=== PATIENT | female | born 1930 | race Caucasian/White ===

== ENCOUNTER 2017-10-03 08:23 | Emergency (ER) | payer MEDICARE, OTHER ==
[~2017-10-03] VITALS: Ht 162.6 cm; Wt 82.0 kg
[~2017-10-03 08:23] MED LIST: METH500T PO
[2017-10-03 09:06] LABS: BASOPHILS % (AUTO) 0.4 % (0-1); EOSINOPHILS # (AUTO) 0.1 X10'3 (0-0.9); EOSINOPHILS % (AUTO) 2.1 % (0-6); HEMATOCRIT 43.7 % (35.0-45.0); HEMOGLOBIN 14.9 g/dl (12.0-16.0); LYMPHOCYTES # (AUTO) 1.1 X10'3 (1.1-4.8); LYMPHOCYTES % (AUTO) 19.3 % (21-51); MEAN CORPUSCULAR HEMOGLOBIN 30.6 PG (27.0-31.0); MEAN PLATELET VOLUME 7.6 FL (7.4-10.4); MONOCYTES # (AUTO) 0.4 X10'3 (0-0.9); MONOCYTES % (AUTO) 8.1 % (2-12); NEUTROPHILS # (AUTO) 3.9 X10'3 (1.8-7.7); NEUTROPHILS % (AUTO) 70.1 % (42-75); PLATELET COUNT 253 X10'3 (140-440); RED BLOOD COUNT 4.86 X10'6 (4.20-5.60); RED CELL DISTRIBUTION WIDTH 13.4 % (11.5-14.5); WHITE BLOOD COUNT 5.5 X10'3 (4.5-11.0)
[2017-10-03 09:14] LABS: ALANINE AMINOTRANSFERASE 31 U/L (12-78); ALBUMIN 3.7 G/DL (3.4-5.0); ALBUMIN/GLOBULIN RATIO 0.8 (1.1-1.5); ALKALINE PHOSPHATASE 84 IU/L (46-116); ANION GAP 11 (8-16); ASPARTATE AMINO TRANSFERASE 28 U/L (10-37); BILIRUBIN,TOTAL 0.6 MG/DL (0.1-1.0); BLOOD UREA NITROGEN 22 MG/DL (7-18); BUN/CREATININE RATIO 12.8 (6.6-38.0); CALCIUM 9.6 MG/DL (8.5-10.1); CHLORIDE 102 MMOL/L (99-107); CREATININE 1.72 MG/DL (0.40-0.90); GLUCOSE 108 MG/DL (70-104); POTASSIUM 3.9 MMOL/L (3.5-5.1); SODIUM 139 MMOL/L (135-145); TOTAL CARBON DIOXIDE 26.4 MMOL/L (24-32); TOTAL PROTEIN 8.1 G/DL (6.4-8.2); eGFR 28 ML/MIN
[2017-10-03 09:22] LABS: CLARITY,URINE CLEAR (Clear); COLOR,URINE YELLOW (Yellow); GLUCOSE, URINE NEGATIVE (Neg); KETONES,URINE NEGATIVE (Neg); LEUKOCYTE ESTERASE ,URINE NEGATIVE (Neg); NITRITES, URINE NEGATIVE (Neg); OCCULT BLOOD,URINE NEGATIVE (Neg); PROTEIN,URINE TRACE mg/dl (Neg)
[2017-10-03 09:23] LABS: UA COLLECTION TYPE STRAIGHT CATH
[2017-10-03 09:28] LABS: MUCUS STRANDS MANY /LPF (Neg); SQUAMOUS EPITHELIAL CELL,UR MODERATE /LPF (FEW)
[2017-10-03 09:30] LABS: BACTERIA,URINE FEW /HPF (Neg); RBC,URINE 0-2 /HPF (0-2); TRANSITIONAL EPI CELLS,URINE FEW /HPF; WBC,URINE 0-4 /HPF (0-4)
[2017-10-03] MEDS ORDERED: POLY17PO10 PO (11:32)
[2017-10-03 11:41] VITALS: BP 182/66
== END 2017-10-03 12:25 | disposition home or self-care (01) ==
LOC: ER 08:23
DX: R10.31 Right lower quadrant pain (principal); K59.00 Constipation, unspecified; I48.91 Unspecified atrial fibrillation; K82.8 Other specified diseases of gallbladder; Z88.0 Allergy status to penicillin
CPT/HCPCS: 36415; 74176; 80053; 81001; 85025; 99285

== ENCOUNTER 2018-03-06 11:27 | Inpatient (IN) | payer MEDICARE, OTHER ==
[~2018-03-06] VITALS: Ht 162.6 cm; Wt 78.6 kg
[2018-03-06] MEDS ORDERED: normal saline 1000ML IV soln IVB ONE ×3 (11:50→12:45)
[2018-03-06 12:02] LABS: BASOPHILS % (AUTO) 0.5 % (0-1); EOSINOPHILS # (AUTO) 0.1 X10'3 (0-0.9); EOSINOPHILS % (AUTO) 1.8 % (0-6); HEMATOCRIT 39.8 % (35.0-45.0); HEMOGLOBIN 13.6 g/dl (12.0-16.0); LYMPHOCYTES # (AUTO) 0.9 X10'3 (1.1-4.8); LYMPHOCYTES % (AUTO) 15.1 % (21-51); MEAN CORPUSCULAR HEMOGLOBIN 30.7 PG (27.0-31.0); MEAN CORPUSCULAR HGB CONC 34.1 % (33.0-36.5); MEAN CORPUSCULAR VOLUME 90.1 FL (78-98); MEAN PLATELET VOLUME 7.3 FL (7.4-10.4); MONOCYTES # (AUTO) 0.4 X10'3 (0-0.9); MONOCYTES % (AUTO) 6.3 % (2-12); NEUTROPHILS # (AUTO) 4.4 X10'3 (1.8-7.7); NEUTROPHILS % (AUTO) 76.3 % (42-75); PLATELET COUNT 214 X10'3 (140-440); RED BLOOD COUNT 4.42 X10'6 (4.20-5.60); RED CELL DISTRIBUTION WIDTH 14.8 % (11.5-14.5); WHITE BLOOD COUNT 5.8 X10'3 (4.5-11.0)
[2018-03-06 12:19] LABS: ALANINE AMINOTRANSFERASE 23 U/L (12-78); ALBUMIN 3.5 G/DL (3.4-5.0); ALBUMIN/GLOBULIN RATIO 0.9 (1.1-1.5); ALKALINE PHOSPHATASE 109 IU/L (46-116); ANION GAP 11 (8-16); ASPARTATE AMINO TRANSFERASE 15 U/L (10-37); BILIRUBIN,TOTAL 0.4 MG/DL (0.1-1.0); BLOOD UREA NITROGEN 30 MG/DL (7-18); BUN/CREATININE RATIO 15.7 (6.6-38.0); CALCIUM 8.9 MG/DL (8.5-10.1); CHLORIDE 104 MMOL/L (99-107); CREATININE 1.91 MG/DL (0.40-0.90); GLUCOSE 191 MG/DL (70-104); POTASSIUM 3.4 MMOL/L (3.5-5.1); PROTHROMBIN TIME 10.2 SECONDS (9.0-12.0); SODIUM 137 MMOL/L (135-145); TOTAL CARBON DIOXIDE 21.9 MMOL/L (24-32); TOTAL PROTEIN 7.3 G/DL (6.4-8.2); eGFR 25 ML/MIN
[2018-03-06 12:23] LABS: TROPONIN I < 0.04 NG/ML (0.0-0.05)
[2018-03-06] MEDS ORDERED: aspirin 325mg tablet PO ONE (12:35)
[2018-03-06] MEDS ORDERED: ondansetron/PF 4mg/2ml inj IV ONE (12:40)
[2018-03-06] MEDS ORDERED: furosemide 10 MG/1 ML 10ml inj IV ONE (13:00)
[2018-03-06] MEDS ORDERED: CARSR60C PO (13:34)
[2018-03-06] MEDS ORDERED: iohexol 350MG/ML 100ml bottle IV ONE (13:51)
[2018-03-06 14:02] LABS: CLARITY,URINE SLIGHTLY CLOUDY (Clear); COLOR,URINE YELLOW (Yellow); GLUCOSE, URINE NEGATIVE (Neg); KETONES,URINE TRACE mg/dl (Neg); LEUKOCYTE ESTERASE ,URINE NEGATIVE (Neg); NITRITES, URINE NEGATIVE (Neg); OCCULT BLOOD,URINE NEGATIVE (Neg); PROTEIN,URINE 30 mg/dl (Neg)
[2018-03-06 14:08] LABS: UA COLLECTION TYPE FOLEY CATH
[2018-03-06] MEDS ORDERED: normal saline 1000ml 1,000 ML IV SCH (14:12)
[2018-03-06] MEDS ORDERED: magnesium 4gm in 100ml NS 100 ML IV PRN (14:15)
[2018-03-06] MEDS ORDERED: magnesium 1gm/100ml D5W IVPB 100 ML IV PRN (14:15)
[2018-03-06] MEDS ORDERED: magnesium Cl slow-release 64mg tablet PO PRN (14:15)
[2018-03-06] MEDS ORDERED: potassium Cl 40MEQ/NS 500ml 500 ML IV PRN ×2 (14:15)
[2018-03-06] MEDS ORDERED: potassium Cl 20 mEq SR tablet PO PRN ×2 (14:15)
[2018-03-06 15:42] LABS: BACTERIA,URINE NONE SEEN /HPF (Neg); RBC,URINE 0-2 /HPF (0-2); SQUAMOUS EPITHELIAL CELL,UR MODERATE /LPF (FEW); WBC,URINE 0-4 /HPF (0-4)
[2018-03-06 15:43] LABS: CAL OXALATE CRYSTALS 4+ /HPF (NEGATIVE); MUCUS STRANDS FEW /LPF (Neg)
[2018-03-06 18:00] VITALS: BP_SYST 160; BP_SYST 169; BP_DIAS 56; BP_DIAS 65
[2018-03-06 20:00] VITALS: BP_SYST 139; BP_SYST 163; BP_SYST 164; BP_DIAS 59; BP_DIAS 60; BP_DIAS 65
[2018-03-06 23:00] VITALS: BP_SYST 139; BP_SYST 163; BP_SYST 164; BP_DIAS 59; BP_DIAS 60; BP_DIAS 65
[2018-03-07] VITALS (8 sets, daily range): BP systolic 120–187; BP diastolic 48–72
[2018-03-07 06:58] LABS: BASOPHILS % (AUTO) 0.3 % (0-1); EOSINOPHILS # (AUTO) 0.1 X10'3 (0-0.9); EOSINOPHILS % (AUTO) 1.8 % (0-6); HEMATOCRIT 38.9 % (35.0-45.0); HEMOGLOBIN 13.4 g/dl (12.0-16.0); LYMPHOCYTES % (AUTO) 15.6 % (21-51); MEAN CORPUSCULAR HGB CONC 34.3 % (33.0-36.5); MEAN CORPUSCULAR VOLUME 90.4 FL (78-98); MEAN PLATELET VOLUME 7.6 FL (7.4-10.4); MONOCYTES # (AUTO) 0.5 X10'3 (0-0.9); MONOCYTES % (AUTO) 7.3 % (2-12); NEUTROPHILS # (AUTO) 4.9 X10'3 (1.8-7.7); PLATELET COUNT 220 X10'3 (140-440); RED BLOOD COUNT 4.31 X10'6 (4.20-5.60); RED CELL DISTRIBUTION WIDTH 14.6 % (11.5-14.5); WHITE BLOOD COUNT 6.6 X10'3 (4.5-11.0)
[2018-03-07 07:06] LABS: ALBUMIN 3.1 G/DL (3.4-5.0); ANION GAP 9 (8-16); BLOOD UREA NITROGEN 20 MG/DL (7-18); BUN/CREATININE RATIO 12.5 (6.6-38.0); CALCIUM 8.7 MG/DL (8.5-10.1); CHLORIDE 107 MMOL/L (99-107); GLUCOSE 89 MG/DL (70-104); POTASSIUM 4.1 MMOL/L (3.5-5.1); SODIUM 141 MMOL/L (135-145); TOTAL CARBON DIOXIDE 25.5 MMOL/L (24-32); eGFR 30 ML/MIN
[2018-03-07] MEDS: K and/or MAG REPLACEMENT MC SCH (08:00)
[2018-03-07] MEDS ORDERED: lactose-reduced food (Ensure High Protein) 237ml bottle PO SCH (13:00)
[2018-03-07] MEDS ORDERED: AMIO200T40 PO (13:04)
[2018-03-07] MEDS ORDERED: DILT120C62 PO (13:04)
[2018-03-07] MEDS ORDERED: LEVO50TA PO (13:04)
[2018-03-07] MEDS ORDERED: hyDRALAzine 10mg tablet PO ONE (19:35)
[2018-03-07] MEDS ORDERED: acetaminophen 325mg tablet PO PRN (21:50)
[2018-03-07] MEDS ORDERED: bisacodyl 5mg tablet.DR PO PRN (21:50)
[2018-03-07] MEDS ORDERED: magnesium hydroxide 30ml (MOM) UD suspension PO ONE (21:50)
[2018-03-07] MEDS ORDERED: bisacodyl 10mg suppository rectal RC PRN (21:50)
[2018-03-07] MEDS ORDERED: magnesium hydroxide 30ml (MOM) UD suspension PO PRN (21:55)
[2018-03-07] MEDS: hyDRALAzine 10mg tablet PO SCH (23:36)
[2018-03-08] VITALS (9 sets, daily range): BP systolic 134–197; BP diastolic 56–90
[2018-03-08 02:52] LABS: BASOPHILS % (AUTO) 0.7 % (0-1); EOSINOPHILS # (AUTO) 0.1 X10'3 (0-0.9); EOSINOPHILS % (AUTO) 2.1 % (0-6); HEMOGLOBIN 12.5 g/dl (12.0-16.0); LYMPHOCYTES # (AUTO) 1.5 X10'3 (1.1-4.8); LYMPHOCYTES % (AUTO) 24.9 % (21-51); MEAN CORPUSCULAR HEMOGLOBIN 30.7 PG (27.0-31.0); MEAN CORPUSCULAR HGB CONC 33.8 % (33.0-36.5); MEAN CORPUSCULAR VOLUME 90.8 FL (78-98); MEAN PLATELET VOLUME 7.9 FL (7.4-10.4); MONOCYTES # (AUTO) 0.4 X10'3 (0-0.9); MONOCYTES % (AUTO) 6.8 % (2-12); NEUTROPHILS % (AUTO) 65.5 % (42-75); PLATELET COUNT 214 X10'3 (140-440); RED BLOOD COUNT 4.08 X10'6 (4.20-5.60); RED CELL DISTRIBUTION WIDTH 14.6 % (11.5-14.5); WHITE BLOOD COUNT 6.2 X10'3 (4.5-11.0)
[2018-03-08 03:07] LABS: ALBUMIN 2.9 G/DL (3.4-5.0); ANION GAP 9 (8-16); BLOOD UREA NITROGEN 18 MG/DL (7-18); BUN/CREATININE RATIO 11.5 (6.6-38.0); CALCIUM 9.1 MG/DL (8.5-10.1); CHLORIDE 107 MMOL/L (99-107); CREATININE 1.57 MG/DL (0.40-0.90); GLUCOSE 99 MG/DL (70-104); MAGNESIUM 2.2 MG/DL (1.5-2.4); POTASSIUM 4.3 MMOL/L (3.5-5.1); SODIUM 141 MMOL/L (135-145); TOTAL CARBON DIOXIDE 25.5 MMOL/L (24-32); eGFR 31 ML/MIN
[2018-03-08] MEDS: amiodarone 200mg tablet PO SCH (07:53)
[2018-03-08] MEDS: levoTHYROXINE 25mcg tablet PO SCH (07:54)
[2018-03-08] MEDS: hyDRALAzine 10mg tablet PO SCH ×3 (07:54→23:47)
[2018-03-08] MEDS: K and/or MAG REPLACEMENT MC SCH (07:58)
[2018-03-08] MEDS: dextrose 5%-1/2 normal saline 1,000 ML IV SCH (15:27)
[2018-03-08] MEDS ORDERED: hyDRALAzine 10mg tablet PO PRN (18:30)
[2018-03-08] MEDS: hyDRALAzine 10mg tablet PO PRN (19:08)
[2018-03-08] MEDS ORDERED: hydrALAZINE 20mg/ml inj. IV ONE (21:00)
[2018-03-09] VITALS (7 sets, daily range): BP systolic 136–197; BP diastolic 53–90
[2018-03-09] MEDS: dextrose 5%-1/2 normal saline 1,000 ML IV SCH ×3 (01:44→21:37)
[2018-03-09] MEDS: hyDRALAzine 10mg tablet PO PRN (05:20)
[2018-03-09 06:09] LABS: BASOPHILS % (AUTO) 0.6 % (0-1); EOSINOPHILS # (AUTO) 0.1 X10'3 (0-0.9); EOSINOPHILS % (AUTO) 2.6 % (0-6); HEMATOCRIT 35.2 % (35.0-45.0); HEMOGLOBIN 12.2 g/dl (12.0-16.0); LYMPHOCYTES % (AUTO) 19.8 % (21-51); MEAN CORPUSCULAR HEMOGLOBIN 31.1 PG (27.0-31.0); MEAN CORPUSCULAR HGB CONC 34.5 % (33.0-36.5); MEAN PLATELET VOLUME 7.9 FL (7.4-10.4); MONOCYTES # (AUTO) 0.4 X10'3 (0-0.9); MONOCYTES % (AUTO) 6.9 % (2-12); NEUTROPHILS # (AUTO) 3.6 X10'3 (1.8-7.7); NEUTROPHILS % (AUTO) 70.1 % (42-75); PLATELET COUNT 192 X10'3 (140-440); RED BLOOD COUNT 3.91 X10'6 (4.20-5.60); RED CELL DISTRIBUTION WIDTH 14.3 % (11.5-14.5); WHITE BLOOD COUNT 5.1 X10'3 (4.5-11.0)
[2018-03-09 06:12] LABS: ALBUMIN 2.6 G/DL (3.4-5.0); ANION GAP 4 (8-16); BLOOD UREA NITROGEN 20 MG/DL (7-18); CALCIUM 8.4 MG/DL (8.5-10.1); CHLORIDE 104 MMOL/L (99-107); CREATININE 1.43 MG/DL (0.40-0.90); GLUCOSE 101 MG/DL (70-104); MAGNESIUM 2.5 MG/DL (1.5-2.4); POTASSIUM 3.7 MMOL/L (3.5-5.1); SODIUM 139 MMOL/L (135-145); eGFR 35 ML/MIN
[2018-03-09] MEDS: levoTHYROXINE 25mcg tablet PO SCH (07:36)
[2018-03-09] MEDS: K and/or MAG REPLACEMENT MC SCH (07:38)
[2018-03-09] MEDS: hyDRALAzine 10mg tablet PO SCH ×3 (07:49→23:50)
[2018-03-09] MEDS: amiodarone 200mg tablet PO SCH (09:46)
[2018-03-09] MEDS: heparin, porcine 5000 units/ml vial SQ SCH (20:00)
[2018-03-10] VITALS (7 sets, daily range): BP systolic 154–226; BP diastolic 62–90
[2018-03-10] MEDS: hyDRALAzine 10mg tablet PO PRN (05:23)
[2018-03-10] MEDS: K and/or MAG REPLACEMENT MC SCH (07:27)
[2018-03-10] MEDS: hyDRALAzine 10mg tablet PO SCH (07:36)
[2018-03-10] MEDS: amiodarone 200mg tablet PO SCH (07:36)
[2018-03-10] MEDS: levoTHYROXINE 25mcg tablet PO SCH (07:37)
[2018-03-10] MEDS: heparin, porcine 5000 units/ml vial SQ SCH ×2 (07:40→20:00)
[2018-03-10] MEDS: dextrose 5%-1/2 normal saline 1,000 ML IV SCH ×2 (07:40→17:05)
[2018-03-10 09:10] LABS: BASOPHILS % (AUTO) 0.4 % (0-1); EOSINOPHILS # (AUTO) 0.2 X10'3 (0-0.9); EOSINOPHILS % (AUTO) 2.4 % (0-6); HEMATOCRIT 37.2 % (35.0-45.0); HEMOGLOBIN 12.7 g/dl (12.0-16.0); LYMPHOCYTES # (AUTO) 0.9 X10'3 (1.1-4.8); LYMPHOCYTES % (AUTO) 13.6 % (21-51); MEAN CORPUSCULAR VOLUME 91.2 FL (78-98); MEAN PLATELET VOLUME 7.5 FL (7.4-10.4); MONOCYTES # (AUTO) 0.4 X10'3 (0-0.9); MONOCYTES % (AUTO) 6.5 % (2-12); NEUTROPHILS % (AUTO) 77.1 % (42-75); PLATELET COUNT 208 X10'3 (140-440); RED BLOOD COUNT 4.09 X10'6 (4.20-5.60); RED CELL DISTRIBUTION WIDTH 14.4 % (11.5-14.5); WHITE BLOOD COUNT 6.5 X10'3 (4.5-11.0)
[2018-03-10 09:26] LABS: ALBUMIN 2.8 G/DL (3.4-5.0); ANION GAP 6 (8-16); BLOOD UREA NITROGEN 20 MG/DL (7-18); BUN/CREATININE RATIO 15.7 (6.6-38.0); CALCIUM 8.2 MG/DL (8.5-10.1); CHLORIDE 98 MMOL/L (99-107); CREATININE 1.27 MG/DL (0.40-0.90); GLUCOSE 136 MG/DL (70-104); MAGNESIUM 2.1 MG/DL (1.5-2.4); POTASSIUM 3.6 MMOL/L (3.5-5.1); SODIUM 130 MMOL/L (135-145); TOTAL CARBON DIOXIDE 25.9 MMOL/L (24-32); eGFR 40 ML/MIN
[2018-03-10] MEDS ORDERED: hydrALAZINE 25 MG tablet PO SCH (16:00)
[2018-03-10] MEDS: hydrALAZINE 25 MG tablet PO SCH ×2 (16:01→23:57)
[2018-03-11 00:02] VITALS: BP 141/69
[2018-03-11 05:59] LABS: BASOPHILS % (AUTO) 0.4 % (0-1); EOSINOPHILS # (AUTO) 0.1 X10'3 (0-0.9); EOSINOPHILS % (AUTO) 2.4 % (0-6); HEMATOCRIT 36.5 % (35.0-45.0); HEMOGLOBIN 12.6 g/dl (12.0-16.0); LYMPHOCYTES % (AUTO) 17.4 % (21-51); MEAN CORPUSCULAR HGB CONC 34.5 % (33.0-36.5); MEAN CORPUSCULAR VOLUME 89.9 FL (78-98); MEAN PLATELET VOLUME 7.7 FL (7.4-10.4); MONOCYTES # (AUTO) 0.5 X10'3 (0-0.9); MONOCYTES % (AUTO) 8.2 % (2-12); NEUTROPHILS # (AUTO) 4.1 X10'3 (1.8-7.7); NEUTROPHILS % (AUTO) 71.6 % (42-75); PLATELET COUNT 199 X10'3 (140-440); RED BLOOD COUNT 4.06 X10'6 (4.20-5.60); RED CELL DISTRIBUTION WIDTH 14.5 % (11.5-14.5); WHITE BLOOD COUNT 5.7 X10'3 (4.5-11.0)
[2018-03-11 06:14] LABS: ALBUMIN 2.8 G/DL (3.4-5.0); ANION GAP 4 (8-16); BLOOD UREA NITROGEN 18 MG/DL (7-18); CALCIUM 8.5 MG/DL (8.5-10.1); CHLORIDE 100 MMOL/L (99-107); GLUCOSE 96 MG/DL (70-104); MAGNESIUM 2.4 MG/DL (1.5-2.4); POTASSIUM 3.9 MMOL/L (3.5-5.1); SODIUM 133 MMOL/L (135-145); TOTAL CARBON DIOXIDE 29.5 MMOL/L (24-32); eGFR 42 ML/MIN
[2018-03-11 07:06] VITALS: BP 154/68
[2018-03-11] MEDS: K and/or MAG REPLACEMENT MC SCH (08:00)
[2018-03-11] MEDS: levoTHYROXINE 25mcg tablet PO SCH (08:02)
[2018-03-11] MEDS: hydrALAZINE 25 MG tablet PO SCH (08:03)
[2018-03-11] MEDS: amiodarone 200mg tablet PO SCH (08:03)
[2018-03-11] MEDS: heparin, porcine 5000 units/ml vial SQ SCH (08:06)
== END 2018-03-11 13:05 | DRG 683 ==
LOC: ER 11:27 → ED HOLD 14:12 → EDBEDREQ 15:29 → PCU 3S 17:35 → ORTHO 4S 23:04 → OBSVTOIN 03-07 10:00
PROVIDERS: ADMIT Internal Medicine; ATTEND Internal Medicine
DX: N17.9 Acute kidney failure, unspecified (principal); G45.9 Transient cerebral ischemic attack, unspecified; R55 Syncope and collapse; R00.1 Bradycardia, unspecified; N18.9 Chronic kidney disease, unspecified; E03.9 Hypothyroidism, unspecified; E78.5 Hyperlipidemia, unspecified; I12.9 Hypertensive chronic kidney disease with stage 1 through stage 4 chronic kidney disease, or unspecified chronic kidney disease; E86.0 Dehydration; E86.9 Volume depletion, unspecified; R29.810 Facial weakness; I48.0 Paroxysmal atrial fibrillation; N18.3 Chronic kidney disease, stage 3 (moderate); Z90.710 Acquired absence of both cervix and uterus; Z88.0 Allergy status to penicillin; Z91.048 Other nonmedicinal substance allergy status; Z79.899 Other long term (current) drug therapy
CPT/HCPCS: 36415; 70450; 70551; 71045; 72141; 80048; 80053; 81001; 82948; 83605; 83735; 83880; 84145; 84443; 84484; 85025; 85610; 87040; 87070; 93005; 93306; 93880; 97110; 97116; 97162; 97530; A6258; A6449; C1758; G0378; J0360; J1644; J1940; J2405; J7030; Q9967

== ENCOUNTER 2018-03-19 21:43 | Inpatient (IN) | payer MEDICARE, OTHER ==
[~2018-03-19] VITALS: Ht 162.6 cm; Wt 76.0 kg
[~2018-03-19 21:43] MED LIST changes: +AMIO200T40 PO; +CARSR60C PO; +DILT120C62 PO; +LEVO50TA PO; -METH500T PO
[2018-03-19] MEDS ORDERED: acetaminophen 325mg tablet PO ONE (22:45)
[2018-03-19 23:26] LABS: BASOPHILS % (AUTO) 0.4 % (0-1); EOSINOPHILS # (AUTO) 0.1 X10'3 (0-0.9); EOSINOPHILS % (AUTO) 1.6 % (0-6); HEMATOCRIT 37.9 % (35.0-45.0); LYMPHOCYTES # (AUTO) 0.5 X10'3 (1.1-4.8); LYMPHOCYTES % (AUTO) 6.5 % (21-51); MEAN CORPUSCULAR HEMOGLOBIN 30.8 PG (27.0-31.0); MEAN CORPUSCULAR HGB CONC 34.4 % (33.0-36.5); MEAN CORPUSCULAR VOLUME 89.4 FL (78-98); MONOCYTES # (AUTO) 0.6 X10'3 (0-0.9); MONOCYTES % (AUTO) 6.8 % (2-12); NEUTROPHILS % (AUTO) 84.7 % (42-75); PLATELET COUNT 250 X10'3 (140-440); RED BLOOD COUNT 4.24 X10'6 (4.20-5.60); RED CELL DISTRIBUTION WIDTH 14.9 % (11.5-14.5); WHITE BLOOD COUNT 8.3 X10'3 (4.5-11.0)
[2018-03-19 23:46] LABS: ALANINE AMINOTRANSFERASE 29 U/L (12-78); ALBUMIN 3.2 G/DL (3.4-5.0); ALBUMIN/GLOBULIN RATIO 0.9 (1.1-1.5); ALKALINE PHOSPHATASE 114 IU/L (46-116); ANION GAP 10 (8-16); ASPARTATE AMINO TRANSFERASE 20 U/L (10-37); BILIRUBIN,TOTAL 0.5 MG/DL (0.1-1.0); BLOOD UREA NITROGEN 29 MG/DL (7-18); CALCIUM 8.7 MG/DL (8.5-10.1); CHLORIDE 92 MMOL/L (99-107); CREATININE 1.93 MG/DL (0.40-0.90); GLUCOSE 120 MG/DL (70-104); POTASSIUM 4.2 MMOL/L (3.5-5.1); SODIUM 125 MMOL/L (135-145); TOTAL CARBON DIOXIDE 23.2 MMOL/L (24-32); TOTAL PROTEIN 6.9 G/DL (6.4-8.2); eGFR 25 ML/MIN
[2018-03-19] MEDS ORDERED: normal saline 1000ml 1,000 ML IV ONE (23:55)
[2018-03-20] MEDS ORDERED: ondansetron/PF 4mg/2ml inj IV ONE (00:05)
[2018-03-20] MEDS ORDERED: morphine 2 MG/ML inj. syringe IV ONE (00:05)
[2018-03-20 00:52] LABS: CLARITY,URINE SLIGHTLY CLOUDY (Clear); COLOR,URINE YELLOW (Yellow); GLUCOSE, URINE NEGATIVE (Neg); KETONES,URINE NEGATIVE (Neg); LEUKOCYTE ESTERASE ,URINE NEGATIVE (Neg); NITRITES, URINE NEGATIVE (Neg); OCCULT BLOOD,URINE NEGATIVE (Neg); PH,URINE 5.5 (4.8-8.0); PROTEIN,URINE NEGATIVE (Neg); UROBILINOGEN,URINE 0.2 E.U/dL (0.2-1.0)
[2018-03-20 00:58] LABS: UA COLLECTION TYPE NON-SPECIFIED
[2018-03-20 00:59] LABS: MUCUS STRANDS MANY /LPF (Neg)
[2018-03-20 01:00] LABS: SQUAMOUS EPITHELIAL CELL,UR MODERATE /LPF (FEW)
[2018-03-20 01:01] LABS: BACTERIA,URINE 1+ /HPF (Neg); HYALINE CASTS 0-3 /LPF (NEGATIVE); RBC,URINE 0-2 /HPF (0-2); WBC CLUMPS,URINE FEW /HPF (NEGATIVE)
[2018-03-20 01:02] LABS: YEAST MODERATE /HPF (NEGATIVE)
[2018-03-20 03:34] LABS: ALBUMIN 2.8 G/DL (3.4-5.0); ANION GAP 10 (8-16); BLOOD UREA NITROGEN 29 MG/DL (7-18); BUN/CREATININE RATIO 14.5 (6.6-38.0); CALCIUM 8.2 MG/DL (8.5-10.1); CHLORIDE 95 MMOL/L (99-107); GLUCOSE 108 MG/DL (70-104); POTASSIUM 4.2 MMOL/L (3.5-5.1); SODIUM 126 MMOL/L (135-145); TOTAL CARBON DIOXIDE 21.5 MMOL/L (24-32); eGFR 24 ML/MIN
[2018-03-20] MEDS ORDERED: morphine 2 MG/ML inj. syringe IV PRN ×3 (03:50→03:55)
[2018-03-20] MEDS ORDERED: acetaminophen 325mg tablet PO PRN ×4 (03:50→03:55)
[2018-03-20] MEDS ORDERED: ondansetron/PF 4mg/2ml inj IV PRN ×2 (03:50→03:55)
[2018-03-20] MEDS ORDERED: mag hydrox/Alum hydrox/simeth 30ml oral suspension PO PRN ×2 (03:50→03:55)
[2018-03-20] MEDS ORDERED: magnesium hydroxide 30ml (MOM) UD suspension PO PRN (03:55)
[2018-03-20] MEDS ORDERED: fluconazole 150mg tablet PO ONE (03:55)
[2018-03-20] MEDS: normal saline 1000ml 1,000 ML IV SCH ×2 (04:05→17:18)
[2018-03-20 05:00] VITALS: BP 97/50
[2018-03-20] MEDS: morphine 2 MG/ML inj. syringe IV PRN ×3 (07:14→21:33)
[2018-03-20 07:22] VITALS: BP 132/51
[2018-03-20 07:59] LABS: ALBUMIN 2.7 G/DL (3.4-5.0); ANION GAP 9 (8-16); BLOOD UREA NITROGEN 28 MG/DL (7-18); BUN/CREATININE RATIO 14.4 (6.6-38.0); CALCIUM 7.9 MG/DL (8.5-10.1); CHLORIDE 95 MMOL/L (99-107); CREATININE 1.94 MG/DL (0.40-0.90); GLUCOSE 96 MG/DL (70-104); POTASSIUM 4.2 MMOL/L (3.5-5.1); SODIUM 127 MMOL/L (135-145); TOTAL CARBON DIOXIDE 23.5 MMOL/L (24-32); eGFR 24 ML/MIN
[2018-03-20] MEDS ORDERED: docusate sod 100mg capsule PO SCH (08:00)
[2018-03-20] MEDS: docusate sod 100mg capsule PO SCH ×2 (08:00→20:00)
[2018-03-20] MEDS: diltiazem SR 60mg capsule (twice daily) PO SCH ×2 (08:00→20:15)
[2018-03-20] MEDS ORDERED: DILTIAZEM HCL PO SCH (08:00)
[2018-03-20] MEDS: amiodarone 200mg tablet PO SCH (08:20)
[2018-03-20] MEDS: levoTHYROXINE 25mcg tablet PO SCH (08:20)
[2018-03-20 12:52] LABS: ALBUMIN 2.7 G/DL (3.4-5.0); ANION GAP 9 (8-16); BLOOD UREA NITROGEN 27 MG/DL (7-18); BUN/CREATININE RATIO 14.3 (6.6-38.0); CALCIUM 8.3 MG/DL (8.5-10.1); CHLORIDE 95 MMOL/L (99-107); CREATININE 1.89 MG/DL (0.40-0.90); GLUCOSE 102 MG/DL (70-104); POTASSIUM 4.2 MMOL/L (3.5-5.1); SODIUM 127 MMOL/L (135-145); TOTAL CARBON DIOXIDE 22.6 MMOL/L (24-32); eGFR 25 ML/MIN
[2018-03-20 13:18] VITALS: BP 124/72
[2018-03-20] MEDS: nystatin 15 GM powder TP SCH ×2 (13:41→21:33)
[2018-03-20 16:36] LABS: ALBUMIN 2.6 G/DL (3.4-5.0); ANION GAP 6 (8-16); BLOOD UREA NITROGEN 27 MG/DL (7-18); BUN/CREATININE RATIO 14.4 (6.6-38.0); CALCIUM 8.1 MG/DL (8.5-10.1); CHLORIDE 97 MMOL/L (99-107); CREATININE 1.88 MG/DL (0.40-0.90); GLUCOSE 97 MG/DL (70-104); POTASSIUM 4.5 MMOL/L (3.5-5.1); SODIUM 127 MMOL/L (135-145); eGFR 25 ML/MIN
[2018-03-20 18:00] VITALS: BP 128/46
[2018-03-20] MEDS: heparin, porcine 5000 units/ml vial SQ SCH (20:15)
[2018-03-20 20:54] LABS: ALBUMIN 2.6 G/DL (3.4-5.0); ANION GAP 9 (8-16); BLOOD UREA NITROGEN 26 MG/DL (7-18); BUN/CREATININE RATIO 14.3 (6.6-38.0); CALCIUM 8.3 MG/DL (8.5-10.1); CHLORIDE 96 MMOL/L (99-107); CREATININE 1.82 MG/DL (0.40-0.90); GLUCOSE 104 MG/DL (70-104); POTASSIUM 4.4 MMOL/L (3.5-5.1); SODIUM 127 MMOL/L (135-145); eGFR 26 ML/MIN
[2018-03-20 22:00] VITALS: BP 128/48
[2018-03-21 05:00] VITALS: BP 128/46
[2018-03-21] MEDS: traMADol 50MG tablet PO PRN ×2 (05:08→20:03)
[2018-03-21] MEDS: normal saline 1000ml 1,000 ML IV SCH ×2 (05:11→08:58)
[2018-03-21 06:06] LABS: BASOPHILS % (AUTO) 0.5 % (0-1); EOSINOPHILS # (AUTO) 0.1 X10'3 (0-0.9); EOSINOPHILS % (AUTO) 1.9 % (0-6); HEMATOCRIT 30.6 % (35.0-45.0); HEMOGLOBIN 10.4 g/dl (12.0-16.0); LYMPHOCYTES # (AUTO) 1.1 X10'3 (1.1-4.8); LYMPHOCYTES % (AUTO) 17.9 % (21-51); MEAN CORPUSCULAR HEMOGLOBIN 30.6 PG (27.0-31.0); MEAN CORPUSCULAR HGB CONC 34.2 % (33.0-36.5); MEAN CORPUSCULAR VOLUME 89.4 FL (78-98); MEAN PLATELET VOLUME 7.3 FL (7.4-10.4); MONOCYTES # (AUTO) 0.5 X10'3 (0-0.9); NEUTROPHILS # (AUTO) 4.4 X10'3 (1.8-7.7); NEUTROPHILS % (AUTO) 71.7 % (42-75); PLATELET COUNT 209 X10'3 (140-440); RED BLOOD COUNT 3.42 X10'6 (4.20-5.60); RED CELL DISTRIBUTION WIDTH 14.8 % (11.5-14.5); WHITE BLOOD COUNT 6.2 X10'3 (4.5-11.0)
[2018-03-21 06:11] LABS: ALBUMIN 2.3 G/DL (3.4-5.0); ANION GAP 8 (8-16); BLOOD UREA NITROGEN 24 MG/DL (7-18); BUN/CREATININE RATIO 14.5 (6.6-38.0); CALCIUM 7.8 MG/DL (8.5-10.1); CHLORIDE 99 MMOL/L (99-107); CREATININE 1.66 MG/DL (0.40-0.90); GLUCOSE 84 MG/DL (70-104); POTASSIUM 4.4 MMOL/L (3.5-5.1); SODIUM 128 MMOL/L (135-145); TOTAL CARBON DIOXIDE 21.1 MMOL/L (24-32); eGFR 29 ML/MIN
[2018-03-21 07:25] VITALS: BP 132/47
[2018-03-21] MEDS: diltiazem SR 60mg capsule (twice daily) PO SCH ×2 (08:00→20:00)
[2018-03-21] MEDS: docusate sod 100mg capsule PO SCH ×2 (08:00→20:02)
[2018-03-21] MEDS: amiodarone 200mg tablet PO SCH (08:48)
[2018-03-21] MEDS: levoTHYROXINE 25mcg tablet PO SCH (08:48)
[2018-03-21] MEDS: heparin, porcine 5000 units/ml vial SQ SCH ×2 (08:52→20:06)
[2018-03-21] MEDS: nystatin 15 GM powder TP SCH ×3 (09:09→23:22)
[2018-03-21] MEDS: morphine 2 MG/ML inj. syringe IV PRN ×2 (09:28→23:39)
[2018-03-21 18:00] VITALS: BP 142/51
[2018-03-21 22:00] VITALS: BP 164/54
[2018-03-22] MEDS: traMADol 50MG tablet PO PRN (05:44)
[2018-03-22 06:04] LABS: BASOPHILS % (AUTO) 0.6 % (0-1); EOSINOPHILS # (AUTO) 0.1 X10'3 (0-0.9); EOSINOPHILS % (AUTO) 1.6 % (0-6); HEMATOCRIT 29.7 % (35.0-45.0); HEMOGLOBIN 10.1 g/dl (12.0-16.0); LYMPHOCYTES % (AUTO) 20.7 % (21-51); MEAN CORPUSCULAR HEMOGLOBIN 30.8 PG (27.0-31.0); MEAN CORPUSCULAR HGB CONC 34.1 % (33.0-36.5); MEAN CORPUSCULAR VOLUME 90.3 FL (78-98); MEAN PLATELET VOLUME 7.2 FL (7.4-10.4); MONOCYTES # (AUTO) 0.5 X10'3 (0-0.9); NEUTROPHILS # (AUTO) 3.3 X10'3 (1.8-7.7); NEUTROPHILS % (AUTO) 66.1 % (42-75); PLATELET COUNT 198 X10'3 (140-440); RED BLOOD COUNT 3.29 X10'6 (4.20-5.60); RED CELL DISTRIBUTION WIDTH 14.8 % (11.5-14.5)
[2018-03-22 06:43] LABS: ALBUMIN 2.3 G/DL (3.4-5.0); ANION GAP 6 (8-16); BLOOD UREA NITROGEN 21 MG/DL (7-18); BUN/CREATININE RATIO 12.9 (6.6-38.0); CALCIUM 8.3 MG/DL (8.5-10.1); CHLORIDE 101 MMOL/L (99-107); CREATININE 1.63 MG/DL (0.40-0.90); GLUCOSE 88 MG/DL (70-104); POTASSIUM 4.6 MMOL/L (3.5-5.1); SODIUM 131 MMOL/L (135-145); TOTAL CARBON DIOXIDE 24.1 MMOL/L (24-32); eGFR 30 ML/MIN
[2018-03-22] MEDS: morphine 2 MG/ML inj. syringe IV PRN (07:10)
[2018-03-22] MEDS: docusate sod 100mg capsule PO SCH ×2 (07:59→20:48)
[2018-03-22] MEDS: amiodarone 200mg tablet PO SCH (07:59)
[2018-03-22] MEDS: nystatin 15 GM powder TP SCH ×3 (08:00→21:00)
[2018-03-22] MEDS: heparin, porcine 5000 units/ml vial SQ SCH ×2 (08:00→20:49)
[2018-03-22] MEDS: diltiazem SR 60mg capsule (twice daily) PO SCH ×2 (08:00→20:00)
[2018-03-22] MEDS: levoTHYROXINE 25mcg tablet PO SCH (08:00)
[2018-03-22] MEDS: aspirin 81mg tab.chew PO SCH (08:02)
[2018-03-22 10:00] VITALS: BP 114/42
[2018-03-22] MEDS: normal saline 1000ml 1,000 ML IV SCH (11:03)
[2018-03-22] MEDS: magnesium hydroxide 30ml (MOM) UD suspension PO PRN (13:41)
[2018-03-22 18:00] VITALS: BP 157/50
[2018-03-22 22:00] VITALS: BP 178/61
[2018-03-23] MEDS: normal saline 1000ml 1,000 ML IV SCH (04:16)
[2018-03-23 05:00] VITALS: BP 193/64
[2018-03-23] MEDS: diltiazem SR 60mg capsule (twice daily) PO SCH (05:39)
[2018-03-23] MEDS: morphine 2 MG/ML inj. syringe IV PRN (05:39)
[2018-03-23 08:10] LABS: BASOPHILS # (AUTO) 0.1 X10'3 (0-0.2); BASOPHILS % (AUTO) 0.8 % (0-1); EOSINOPHILS # (AUTO) 0.1 X10'3 (0-0.9); HEMATOCRIT 32.6 % (35.0-45.0); HEMOGLOBIN 11.1 g/dl (12.0-16.0); LYMPHOCYTES # (AUTO) 0.8 X10'3 (1.1-4.8); LYMPHOCYTES % (AUTO) 12.6 % (21-51); MEAN CORPUSCULAR HEMOGLOBIN 30.7 PG (27.0-31.0); MEAN CORPUSCULAR VOLUME 90.4 FL (78-98); MEAN PLATELET VOLUME 6.9 FL (7.4-10.4); MONOCYTES # (AUTO) 0.4 X10'3 (0-0.9); MONOCYTES % (AUTO) 6.7 % (2-12); NEUTROPHILS # (AUTO) 5.2 X10'3 (1.8-7.7); NEUTROPHILS % (AUTO) 77.9 % (42-75); PLATELET COUNT 235 X10'3 (140-440); RED BLOOD COUNT 3.61 X10'6 (4.20-5.60); RED CELL DISTRIBUTION WIDTH 15.1 % (11.5-14.5); WHITE BLOOD COUNT 6.7 X10'3 (4.5-11.0)
[2018-03-23] MEDS: docusate sod 100mg capsule PO SCH (08:13)
[2018-03-23] MEDS: levoTHYROXINE 25mcg tablet PO SCH (08:13)
[2018-03-23] MEDS: amiodarone 200mg tablet PO SCH (08:13)
[2018-03-23] MEDS: nystatin 15 GM powder TP SCH ×2 (08:14→13:37)
[2018-03-23] MEDS: heparin, porcine 5000 units/ml vial SQ SCH (08:14)
[2018-03-23] MEDS: aspirin 81mg tab.chew PO SCH (08:14)
[2018-03-23 08:21] LABS: ALBUMIN 2.5 G/DL (3.4-5.0); ANION GAP 8 (8-16); BLOOD UREA NITROGEN 18 MG/DL (7-18); CALCIUM 8.9 MG/DL (8.5-10.1); CHLORIDE 103 MMOL/L (99-107); CREATININE 1.38 MG/DL (0.40-0.90); GLUCOSE 94 MG/DL (70-104); POTASSIUM 4.7 MMOL/L (3.5-5.1); SODIUM 136 MMOL/L (135-145); TOTAL CARBON DIOXIDE 24.8 MMOL/L (24-32); eGFR 36 ML/MIN
[2018-03-23] MEDS ORDERED: lisinopril 10 MG tablet PO SCH (08:40)
[2018-03-23] MEDS: magnesium hydroxide 30ml (MOM) UD suspension PO PRN (09:27)
[2018-03-23 10:00] VITALS: BP 144/48
[2018-03-23] MEDS ORDERED: lactulose 20gm/30ml cup PO ONE (11:20)
== END 2018-03-23 16:02 | DRG 543 ==
LOC: ER 21:44 → ED HOLD 03-20 03:50 → ORTHO 4S 03-20 04:34
PROVIDERS: ADMIT Internal Medicine; ATTEND Internal Medicine
PROC: 2W3SX1Z Immobilization of Right Foot using Splint (ICD-10-PCS; principal; 2018-03-19)
DX: M80.071A Age-related osteoporosis with current pathological fracture, right ankle and foot, initial encounter for fracture (principal); N18.4 Chronic kidney disease, stage 4 (severe); E87.1 Hypo-osmolality and hyponatremia; N17.9 Acute kidney failure, unspecified; B37.49 Other urogenital candidiasis; M19.90 Unspecified osteoarthritis, unspecified site; E86.0 Dehydration; I48.2 Chronic atrial fibrillation; Z66 Do not resuscitate; W06.XXXA Fall from bed, initial encounter; E03.9 Hypothyroidism, unspecified; E86.9 Volume depletion, unspecified; Z90.710 Acquired absence of both cervix and uterus; X50.1XXA Overexertion from prolonged static or awkward postures, initial encounter; Y93.89 Activity, other specified; Y92.89 Other specified places as the place of occurrence of the external cause; Y99.8 Other external cause status; Z88.0 Allergy status to penicillin; Z91.048 Other nonmedicinal substance allergy status; Z79.899 Other long term (current) drug therapy
CPT/HCPCS: 36415; 73502; 73610; 80048; 80053; 81001; 84443; 85025; 87070; 87088; 93005; 96361; 96374; 96375; 97110; 97161; 97530; 99285; J1644; J2270; J2405; J7030

== ENCOUNTER 2018-03-31 01:08 | Emergency (ER) | payer MEDICARE, OTHER ==
[~2018-03-31] VITALS: Ht 162.6 cm; Wt 63.6 kg
[~2018-03-31 01:08] MED LIST changes: -CARSR60C PO
[2018-03-31] MEDS ORDERED: ondansetron 4mg rapidly disintigrating tab PO ONE (01:15)
[2018-03-31] MEDS ORDERED: magnesium citrate 296ml oral solution PO ONE (01:35)
[2018-03-31] MEDS ORDERED: normal saline 1000ML IV soln IVB ONE (01:35)
[2018-03-31] MEDS ORDERED: methylnaltrexone br 12mg/0.6ml inj***SubQ only SQ ONE (01:35)
[2018-03-31 04:01] VITALS: BP 153/79
== END 2018-03-31 04:04 | disposition home or self-care (01) ==
LOC: ER 01:09
DX: S82.91XS Unspecified fracture of right lower leg, sequela (principal); K59.03 Drug induced constipation; T40.2X5A Adverse effect of other opioids, initial encounter; I48.91 Unspecified atrial fibrillation; M19.90 Unspecified osteoarthritis, unspecified site; Z88.0 Allergy status to penicillin; Z88.1 Allergy status to other antibiotic agents; Z79.899 Other long term (current) drug therapy; Z98.890 Other specified postprocedural states; X58.XXXS Exposure to other specified factors, sequela
CPT/HCPCS: 96372; 99284; J2212

== ENCOUNTER 2018-07-03 06:51 | Inpatient (IN) | payer MEDICARE, OTHER ==
[~2018-07-03] VITALS: Ht 162.6 cm; Wt 72.7 kg
[2018-07-03] MEDS ORDERED: normal saline 1000ML IV soln IVB ONE (08:05)
[2018-07-03] MEDS ORDERED: morphine 2 MG/ML inj. syringe IV PRN ×2 (08:05→10:45)
[2018-07-03 08:23] LABS: CLARITY,URINE CLEAR (Clear); COLOR,URINE YELLOW (Yellow); GLUCOSE, URINE NEGATIVE (Neg); KETONES,URINE NEGATIVE (Neg); LEUKOCYTE ESTERASE ,URINE SMALL (Neg); NITRITES, URINE NEGATIVE (Neg); OCCULT BLOOD,URINE NEGATIVE (Neg); PH,URINE 6.5 (4.8-8.0); PROTEIN,URINE NEGATIVE (Neg)
[2018-07-03] MEDS: ondansetron/PF 4mg/2ml inj IV ONE ×2 (08:34→11:00)
[2018-07-03] MEDS: morphine 4 MG/ML inj SYRINge IV PRN ×5 (08:35→12:11)
[2018-07-03 08:36] LABS: UA COLLECTION TYPE STRAIGHT CATH
[2018-07-03 08:38] LABS: BACTERIA,URINE 3+ /HPF (Neg); RBC,URINE 0-2 /HPF (0-2)
[2018-07-03 08:39] LABS: SQUAMOUS EPITHELIAL CELL,UR FEW /LPF (FEW); WBC CLUMPS,URINE FEW /HPF (NEGATIVE)
[2018-07-03 08:54] LABS: BASOPHILS % (AUTO) 0.6 % (0-1); EOSINOPHILS # (AUTO) 0.1 X10'3 (0-0.9); EOSINOPHILS % (AUTO) 1.6 % (0-6); HEMATOCRIT 37.5 % (35.0-45.0); HEMOGLOBIN 12.8 g/dl (12.0-16.0); LYMPHOCYTES # (AUTO) 0.8 X10'3 (1.1-4.8); LYMPHOCYTES % (AUTO) 17.4 % (21-51); MEAN CORPUSCULAR HEMOGLOBIN 32.3 PG (27.0-31.0); MEAN CORPUSCULAR HGB CONC 34.1 % (33.0-36.5); MEAN CORPUSCULAR VOLUME 94.8 FL (78-98); MEAN PLATELET VOLUME 6.6 FL (7.4-10.4); MONOCYTES # (AUTO) 0.3 X10'3 (0-0.9); MONOCYTES % (AUTO) 7.5 % (2-12); NEUTROPHILS # (AUTO) 3.4 X10'3 (1.8-7.7); NEUTROPHILS % (AUTO) 72.9 % (42-75); PLATELET COUNT 256 X10'3 (140-440); RED BLOOD COUNT 3.96 X10'6 (4.20-5.60); RED CELL DISTRIBUTION WIDTH 13.9 % (11.5-14.5); WHITE BLOOD COUNT 4.6 X10'3 (4.5-11.0)
--- NOTE | 2018-07-03 09:00 | NUR ---
Pts IV had infiltrated and unable to obtain access. Dr. Trent updated and pt to have line placed by PICC RN for extended/midline IV. Pts pain med morphine may be given as IM shot till access obtained.
[2018-07-03 09:17] LABS: ALANINE AMINOTRANSFERASE 45 U/L (12-78); ALBUMIN 3.1 G/DL (3.4-5.0); ALBUMIN/GLOBULIN RATIO 0.8 (1.1-1.5); ALKALINE PHOSPHATASE 83 IU/L (46-116); ANION GAP 12 (8-16); ASPARTATE AMINO TRANSFERASE 33 U/L (10-37); BILIRUBIN,TOTAL 0.8 MG/DL (0.1-1.0); BLOOD UREA NITROGEN 21 MG/DL (7-18); BUN/CREATININE RATIO 13.6 (6.6-38.0); CALCIUM 8.7 MG/DL (8.5-10.1); CHLORIDE 94 MMOL/L (99-107); CREATININE 1.54 MG/DL (0.40-0.90); GLUCOSE 98 MG/DL (70-104); POTASSIUM 3.5 MMOL/L (3.5-5.1); SODIUM 130 MMOL/L (135-145); TOTAL CARBON DIOXIDE 24.5 MMOL/L (24-32); TOTAL PROTEIN 6.9 G/DL (6.4-8.2); eGFR 32 ML/MIN
[2018-07-03] MEDS ORDERED: acetaminophen 325mg tablet PO ONE (10:10)
[2018-07-03] MEDS ORDERED: morphine 4 MG/ML inj SYRINge IM ONE (10:10)
[2018-07-03] MEDS ORDERED: levoFLOXACIN-Levaquin 500mg/D5 100 ML IV ONE (10:45)
[2018-07-03] MEDS ORDERED: LEVO500T2 PO (10:47)
[2018-07-03] MEDS ORDERED: ACET-3068 PO (10:47)
--- NOTE | 2018-07-03 12:23 | NUR ---
SPOKE TO DONALD ON PHONE [phone] HE IS UNABLE TO GET HIS OUT OF THE CAR SHE IS WC BOUND
--- NOTE | 2018-07-03 12:41 | NUR ---
DAUGHTER FRANCIE AT BEDSIDE AND STATING "I CAN NOT TAKE CARE OF HER"
--- NOTE | 2018-07-03 12:49 | NUR ---
SPOKE WITH DR SMITH ABOUT PATIENTS DISCHARGE PLAN; MD WILL SPEAK TO DAUGHTER.
[2018-07-03] MEDS ORDERED: ondansetron/PF 4mg/2ml inj IV ONE (13:10)
[2018-07-03] MEDS ORDERED: metoclopramide 5 mg/ml inj IV ONE (13:40)
[2018-07-03] MEDS ORDERED: FURO-150 PO (14:22)
[2018-07-03] MEDS ORDERED: normal saline 1000ml 1,000 ML IV SCH (15:49)
[2018-07-03] MEDS ORDERED: ondansetron/PF 4mg/2ml inj IV PRN ×2 (15:50→16:00)
[2018-07-03] MEDS ORDERED: magnesium Cl slow-release 64mg tablet PO PRN (15:50)
[2018-07-03] MEDS ORDERED: HYDROcodone/acetaminophen 5mg/325mg tablet PO PRN ×2 (15:50→16:00)
[2018-07-03] MEDS ORDERED: magnesium 2GM in 50ml NS 50 ML IV PRN (15:50)
[2018-07-03] MEDS ORDERED: potassium Cl 20 mEq SR tablet PO PRN ×4 (15:50→16:00)
[2018-07-03] MEDS ORDERED: morphine 4 MG/ML inj SYRINge IV PRN ×2 (15:50→16:00)
[2018-07-03] MEDS ORDERED: potassium Cl 40MEQ/NS 500ml 500 ML IV PRN ×4 (15:50→16:00)
[2018-07-03] MEDS ORDERED: magnesium 4gm in 100ml NS 100 ML IV PRN (15:50)
[2018-07-03] MEDS ORDERED: acetaminophen 325mg tablet PO PRN (16:00)
--- NOTE | 2018-07-03 19:59 | NUR ---
assisting RN with pt care, pt is on hospital bed as there is no bed upstairs, pt is on bedpan, wears depends, no skin breakdown to back/coccyx
[2018-07-03] MEDS: normal saline 1000ml 1,000 ML IV SCH (20:13)
--- NOTE | 2018-07-03 20:14 | NUR ---
GAVE PT WATER AND WARM BLANKET, UNABLE TO URINATE, BEDPAN REMOVED
[2018-07-04 06:26] LABS: BASOPHILS % (AUTO) 0.6 % (0-1); EOSINOPHILS # (AUTO) 0.1 X10'3 (0-0.9); EOSINOPHILS % (AUTO) 2.1 % (0-6); HEMATOCRIT 34.4 % (35.0-45.0); HEMOGLOBIN 11.7 g/dl (12.0-16.0); LYMPHOCYTES # (AUTO) 0.7 X10'3 (1.1-4.8); LYMPHOCYTES % (AUTO) 18.1 % (21-51); MEAN CORPUSCULAR HEMOGLOBIN 32.5 PG (27.0-31.0); MEAN CORPUSCULAR VOLUME 95.6 FL (78-98); MEAN PLATELET VOLUME 6.4 FL (7.4-10.4); MONOCYTES # (AUTO) 0.4 X10'3 (0-0.9); MONOCYTES % (AUTO) 9.5 % (2-12); NEUTROPHILS # (AUTO) 2.8 X10'3 (1.8-7.7); NEUTROPHILS % (AUTO) 69.7 % (42-75); PLATELET COUNT 227 X10'3 (140-440)
[2018-07-04 06:41] LABS: ALANINE AMINOTRANSFERASE 42 U/L (12-78); ALBUMIN 2.6 G/DL (3.4-5.0); ALBUMIN/GLOBULIN RATIO 0.7 (1.1-1.5); ALKALINE PHOSPHATASE 74 IU/L (46-116); ANION GAP 8 (8-16); ASPARTATE AMINO TRANSFERASE 34 U/L (10-37); BILIRUBIN,TOTAL 0.6 MG/DL (0.1-1.0); BLOOD UREA NITROGEN 18 MG/DL (7-18); BUN/CREATININE RATIO 12.7 (6.6-38.0); CALCIUM 8.6 MG/DL (8.5-10.1); CHLORIDE 99 MMOL/L (99-107); CREATININE 1.42 MG/DL (0.40-0.90); GLUCOSE 88 MG/DL (70-104); MAGNESIUM 1.9 MG/DL (1.5-2.4); POTASSIUM 4.3 MMOL/L (3.5-5.1); SODIUM 134 MMOL/L (135-145); TOTAL CARBON DIOXIDE 26.8 MMOL/L (24-32); TOTAL PROTEIN 6.3 G/DL (6.4-8.2); eGFR 35 ML/MIN
[2018-07-04] MEDS: K and/or MAG REPLACEMENT MC SCH (08:00)
[2018-07-04] MEDS ORDERED: K and/or MAG REPLACEMENT MC SCH (08:00)
[2018-07-04] MEDS: amiodarone 200mg tablet PO SCH (08:59)
[2018-07-04 10:04] LABS: ALANINE AMINOTRANSFERASE 44 U/L (12-78); ALBUMIN 2.7 G/DL (3.4-5.0); ALBUMIN/GLOBULIN RATIO 0.8 (1.1-1.5); ALKALINE PHOSPHATASE 76 IU/L (46-116); ASPARTATE AMINO TRANSFERASE 29 U/L (10-37); BILIRUBIN,DIRECT 0.3 MG/DL (0-0.3); BILIRUBIN,TOTAL 0.6 MG/DL (0.1-1.0); TOTAL PROTEIN 6.1 G/DL (6.4-8.2)
--- NOTE | 2018-07-04 12:39 | NUR ---
patient assisted on a bedpan.
--- NOTE | 2018-07-04 12:48 | NUR ---
PATIENT REPOSITIONED ON BED,CALL LIGHT WITHIN REACH.
--- NOTE | 2018-07-04 13:02 | NUR ---
paged regarding ua result.3+ bacteria.
--- NOTE | 2018-07-04 13:39 | NUR ---
attempted to give report, but rn was not available.
[2018-07-04 16:00] VITALS: BP 149/53
[2018-07-04] MEDS: levoFLOXACIN-Levaquin 500mg/D5 100 ML IV SCH (17:54)
[2018-07-04] MEDS: normal saline 1000ml 1,000 ML IV SCH (17:54)
--- NOTE | 2018-07-04 18:54 | NUR ---
Problems reprioritized. Patient report given, questions answered & plan of care reviewed with Kiya ZHAO.
[2018-07-04 19:00] VITALS: BP 124/45
[2018-07-04] MEDS ORDERED: diltiazem SR 60mg capsule (twice daily) PO SCH (20:00)
[2018-07-04] MEDS: acetaminophen 325mg tablet PO PRN (20:16)
[2018-07-04] MEDS ORDERED: diltiazem 30mg tablet PO ONE (20:25)
[2018-07-05] VITALS: BP 149/57
[2018-07-05 02:00] VITALS: BP 150/55
[2018-07-05] MEDS: diltiazem 30mg tablet PO SCH ×4 (02:00→19:51)
[2018-07-05 05:13] LABS: ALBUMIN 2.7 G/DL (3.4-5.0); ANION GAP 8 (8-16); BLOOD UREA NITROGEN 20 MG/DL (7-18); BUN/CREATININE RATIO 13.5 (6.6-38.0); CALCIUM 8.6 MG/DL (8.5-10.1); CHLORIDE 100 MMOL/L (99-107); CREATININE 1.48 MG/DL (0.40-0.90); GLUCOSE 94 MG/DL (70-104); POTASSIUM 4.2 MMOL/L (3.5-5.1); SODIUM 133 MMOL/L (135-145); TOTAL CARBON DIOXIDE 25.2 MMOL/L (24-32); eGFR 33 ML/MIN
[2018-07-05 05:15] LABS: BASOPHILS % (AUTO) 0.6 % (0-1); EOSINOPHILS # (AUTO) 0.1 X10'3 (0-0.9); EOSINOPHILS % (AUTO) 1.4 % (0-6); HEMATOCRIT 34.8 % (35.0-45.0); HEMOGLOBIN 11.8 g/dl (12.0-16.0); LYMPHOCYTES # (AUTO) 0.8 X10'3 (1.1-4.8); LYMPHOCYTES % (AUTO) 19.7 % (21-51); MEAN CORPUSCULAR HEMOGLOBIN 32.4 PG (27.0-31.0); MEAN CORPUSCULAR HGB CONC 33.8 % (33.0-36.5); MEAN CORPUSCULAR VOLUME 95.7 FL (78-98); MEAN PLATELET VOLUME 6.9 FL (7.4-10.4); MONOCYTES # (AUTO) 0.3 X10'3 (0-0.9); MONOCYTES % (AUTO) 8.7 % (2-12); NEUTROPHILS # (AUTO) 2.7 X10'3 (1.8-7.7); NEUTROPHILS % (AUTO) 69.6 % (42-75); PLATELET COUNT 220 X10'3 (140-440); RED BLOOD COUNT 3.64 X10'6 (4.20-5.60); RED CELL DISTRIBUTION WIDTH 14.3 % (11.5-14.5); WHITE BLOOD COUNT 3.9 X10'3 (4.5-11.0)
--- NOTE | 2018-07-05 06:44 | NUR ---
Patient in room [facility]. I have received report from PAVEL Huertas and had the opportunity to ask questions and assume patient care.
[2018-07-05 07:32] VITALS: BP 132/48
[2018-07-05] MEDS: levoFLOXACIN-Levaquin 500mg/D5 100 ML IV SCH (07:47)
[2018-07-05] MEDS: amiodarone 200mg tablet PO SCH (07:49)
[2018-07-05] MEDS: levoTHYROXINE 25mcg tablet PO SCH (07:50)
[2018-07-05] MEDS: K and/or MAG REPLACEMENT MC SCH (08:00)
[2018-07-05 11:52] VITALS: BP 142/58
--- NOTE | 2018-07-05 18:46 | NUR ---
Problems reprioritized. Patient report given, questions answered & plan of care reviewed with PAVEL Bonilla.
[2018-07-05 19:00] VITALS: BP 135/56
[2018-07-06] VITALS: BP 135/58
[2018-07-06] MEDS: diltiazem 30mg tablet PO SCH ×4 (02:00→20:00)
[2018-07-06 02:20] VITALS: BP 154/68
--- NOTE | 2018-07-06 06:32 | NUR ---
Problems reprioritized. Patient report given, questions answered & plan of care reviewed with Haley ZHAO. Addendum: 07/06/18 at 0634 by Kiya Varela RN Amended: Links added.
--- NOTE | 2018-07-06 06:34 | NUR ---
Patient in room [facility]. I have received report from PAVEL Huertas and had the opportunity to ask questions and assume patient care.
[2018-07-06 07:00] VITALS: BP 161/50
[2018-07-06] MEDS: amiodarone 200mg tablet PO SCH (07:21)
[2018-07-06] MEDS: levoTHYROXINE 25mcg tablet PO SCH (07:21)
[2018-07-06] MEDS: levoFLOXACIN-Levaquin 500mg/D5 100 ML IV SCH (07:21)
[2018-07-06] MEDS: K and/or MAG REPLACEMENT MC SCH (08:00)
--- NOTE | 2018-07-06 08:00 | NUR ---
Pt refusing labs to be drawn, Dr Bonilla notified.
[2018-07-06 11:16] VITALS: BP 124/54
[2018-07-06 11:40] LABS: BASOPHILS % (AUTO) 0.5 % (0-1); EOSINOPHILS # (AUTO) 0.1 X10'3 (0-0.9); EOSINOPHILS % (AUTO) 1.2 % (0-6); HEMATOCRIT 32.9 % (35.0-45.0); HEMOGLOBIN 11.1 g/dl (12.0-16.0); LYMPHOCYTES # (AUTO) 0.7 X10'3 (1.1-4.8); LYMPHOCYTES % (AUTO) 14.7 % (21-51); MEAN CORPUSCULAR HEMOGLOBIN 32.6 PG (27.0-31.0); MEAN CORPUSCULAR HGB CONC 33.7 % (33.0-36.5); MEAN CORPUSCULAR VOLUME 96.5 FL (78-98); MEAN PLATELET VOLUME 6.9 FL (7.4-10.4); MONOCYTES # (AUTO) 0.5 X10'3 (0-0.9); NEUTROPHILS # (AUTO) 3.7 X10'3 (1.8-7.7); NEUTROPHILS % (AUTO) 73.6 % (42-75); PLATELET COUNT 238 X10'3 (140-440); RED BLOOD COUNT 3.41 X10'6 (4.20-5.60); RED CELL DISTRIBUTION WIDTH 14.1 % (11.5-14.5)
[2018-07-06 11:47] LABS: ALBUMIN 2.4 G/DL (3.4-5.0); ANION GAP 6 (8-16); BLOOD UREA NITROGEN 20 MG/DL (7-18); BUN/CREATININE RATIO 11.3 (6.6-38.0); CALCIUM 8.3 MG/DL (8.5-10.1); CHLORIDE 100 MMOL/L (99-107); CREATININE 1.77 MG/DL (0.40-0.90); GLUCOSE 98 MG/DL (70-104); SODIUM 133 MMOL/L (135-145); TOTAL CARBON DIOXIDE 26.8 MMOL/L (24-32); eGFR 27 ML/MIN
[2018-07-06] MEDS: normal saline 1000ml 1,000 ML IV SCH (15:10)
--- NOTE | 2018-07-06 18:52 | NUR ---
Problems reprioritized. Patient report given, questions answered & plan of care reviewed with PAVEL Huertas.
[2018-07-06 19:00] VITALS: BP 132/45
[2018-07-07] VITALS: BP 148/52
[2018-07-07] MEDS: diltiazem 30mg tablet PO SCH ×4 (02:00→19:24)
[2018-07-07] MEDS: acetaminophen 325mg tablet PO PRN ×2 (02:33→20:47)
[2018-07-07 05:37] LABS: BASOPHILS % (AUTO) 0.6 % (0-1); EOSINOPHILS # (AUTO) 0.1 X10'3 (0-0.9); HEMATOCRIT 32.8 % (35.0-45.0); HEMOGLOBIN 11.1 g/dl (12.0-16.0); LYMPHOCYTES # (AUTO) 1.1 X10'3 (1.1-4.8); LYMPHOCYTES % (AUTO) 24.7 % (21-51); MEAN CORPUSCULAR HEMOGLOBIN 32.5 PG (27.0-31.0); MEAN CORPUSCULAR HGB CONC 33.8 % (33.0-36.5); MEAN PLATELET VOLUME 6.9 FL (7.4-10.4); MONOCYTES # (AUTO) 0.4 X10'3 (0-0.9); MONOCYTES % (AUTO) 10.2 % (2-12); NEUTROPHILS # (AUTO) 2.7 X10'3 (1.8-7.7); NEUTROPHILS % (AUTO) 62.5 % (42-75); PLATELET COUNT 228 X10'3 (140-440); RED BLOOD COUNT 3.42 X10'6 (4.20-5.60); WHITE BLOOD COUNT 4.3 X10'3 (4.5-11.0)
[2018-07-07 05:42] LABS: ALBUMIN 2.4 G/DL (3.4-5.0); ANION GAP 7 (8-16); BLOOD UREA NITROGEN 18 MG/DL (7-18); BUN/CREATININE RATIO 11.4 (6.6-38.0); CALCIUM 8.3 MG/DL (8.5-10.1); CHLORIDE 98 MMOL/L (99-107); CREATININE 1.58 MG/DL (0.40-0.90); GLUCOSE 100 MG/DL (70-104); MAGNESIUM 1.9 MG/DL (1.5-2.4); POTASSIUM 4.2 MMOL/L (3.5-5.1); SODIUM 132 MMOL/L (135-145); TOTAL CARBON DIOXIDE 27.1 MMOL/L (24-32); eGFR 31 ML/MIN
[2018-07-07 06:30] VITALS: BP 167/58
--- NOTE | 2018-07-07 06:35 | NUR ---
Patient in room [facility]. I have received report from PAVEL Huertas and had the opportunity to ask questions and assume patient care.
--- NOTE | 2018-07-07 06:38 | NUR ---
Problems reprioritized. Patient report given, questions answered & plan of care reviewed with Shital ZHAO. Addendum: 07/07/18 at 0639 by Kiya Varela RN Amended: Links added.
[2018-07-07] MEDS: K and/or MAG REPLACEMENT MC SCH (07:22)
[2018-07-07] MEDS ORDERED: morphine 4 MG/ML inj SYRINge IV PRN (08:20)
[2018-07-07] MEDS: amiodarone 200mg tablet PO SCH (09:30)
[2018-07-07] MEDS: levoTHYROXINE 25mcg tablet PO SCH (09:30)
[2018-07-07] MEDS: normal saline 1000ml 1,000 ML IV SCH ×2 (09:43→23:29)
[2018-07-07] MEDS ORDERED: levoFLOXACIN 500mg tablet PO SCH (11:00)
[2018-07-07 11:30] VITALS: BP 179/60
--- NOTE | 2018-07-07 12:04 | NUR ---
Increased BP, asymptomatic. Dr Bonilla RX'd lisinopril.
[2018-07-07] MEDS: bisacodyl 5mg tablet.DR PO PRN (12:36)
[2018-07-07] MEDS: lisinopril 5mg tablet PO SCH (12:36)
[2018-07-07] MEDS: levoFLOXACIN 250mg tablet PO SCH (12:36)
--- NOTE | 2018-07-07 18:58 | NUR ---
Patient in room [facility]. I have received report from Shital ZHAO and had the opportunity to ask questions and assume patient care. Pt resting comfortably in bed, just finished dinner. No signs of distress, will continue to monitor.
[2018-07-07 20:20] VITALS: BP 139/48
[2018-07-07 23:53] VITALS: BP 128/62
[2018-07-08] MEDS: diltiazem 30mg tablet PO SCH ×4 (01:54→19:41)
[2018-07-08 01:55] VITALS: BP 141/59
--- NOTE | 2018-07-08 06:25 | NUR ---
Problems reprioritized. Patient report given, questions answered & plan of care reviewed with Shital RN.
[2018-07-08 06:30] VITALS: BP 166/64
--- NOTE | 2018-07-08 06:30 | NUR ---
Patient in room [facility]. I have received report from PAVEL Phillip and had the opportunity to ask questions and assume patient care.
[2018-07-08] MEDS ORDERED: lisinopril 5mg tablet PO SCH (08:00)
[2018-07-08] MEDS: K and/or MAG REPLACEMENT MC SCH (08:00)
[2018-07-08] MEDS: levoTHYROXINE 25mcg tablet PO SCH (09:44)
[2018-07-08] MEDS: lisinopril 5mg tablet PO SCH (09:45)
[2018-07-08] MEDS: bisacodyl 5mg tablet.DR PO PRN (09:45)
[2018-07-08] MEDS: amiodarone 200mg tablet PO SCH (09:46)
[2018-07-08 10:13] LABS: ALBUMIN 2.3 G/DL (3.4-5.0); ANION GAP 10 (8-16); BLOOD UREA NITROGEN 13 MG/DL (7-18); BUN/CREATININE RATIO 11.9 (6.6-38.0); CALCIUM 8.2 MG/DL (8.5-10.1); CHLORIDE 98 MMOL/L (99-107); CREATININE 1.09 MG/DL (0.40-0.90); GLUCOSE 148 MG/DL (70-104); MAGNESIUM 1.7 MG/DL (1.5-2.4); POTASSIUM 3.3 MMOL/L (3.5-5.1); SODIUM 130 MMOL/L (135-145); eGFR 47 ML/MIN
[2018-07-08] MEDS ORDERED: magnesium 4gm in 100ml NS 100 ML IV PRN (10:20)
[2018-07-08] MEDS ORDERED: magnesium 2GM in 50ml NS 50 ML IV PRN (10:20)
[2018-07-08] MEDS ORDERED: potassium Cl 20 mEq SR tablet PO PRN (10:20)
[2018-07-08] MEDS ORDERED: magnesium Cl slow-release 64mg tablet PO PRN (10:20)
[2018-07-08] MEDS ORDERED: potassium Cl 40MEQ/NS 500ml 500 ML IV PRN ×2 (10:20)
[2018-07-08] MEDS ORDERED: bisacodyl 10mg suppository rectal RC STA (10:54)
[2018-07-08] MEDS: potassium Cl 20 mEq SR tablet PO PRN ×3 (11:02→19:38)
[2018-07-08] MEDS: levoFLOXACIN 250mg tablet PO SCH (11:02)
[2018-07-08 11:30] VITALS: BP 151/58
[2018-07-08] MEDS: normal saline 1000ml 1,000 ML IV SCH (13:10)
[2018-07-08] MEDS ORDERED: bisacodyl 10mg suppository rectal RC ONE (14:00)
--- NOTE | 2018-07-08 15:36 | NUR ---
II 07/13 Initial: Pt admit with vague complaints-low back pain, ankle fracture x3 weeks, weak feeling, SOB. Per MD notes back pain has been resolved. Pt is on heart healthy mechanical soft diet. PO intake has increased from 25% to 50-75% most likely meeting nutrition needs. LBM 07/03/18, pt received dulox 07/08/18. Will monitor for regular bowel movements and further bowel care. Pt is w/ altered related lab values will monitor for ONS. Rec: 1. Continue to heart healthy diet. 2. Monitor for further bowel care 3. Monitor for ONS 4. Wt per rx Addendum: 07/08/18 at [address] Amended: Links added. Addendum: 07/09/18 at [address] CUONG Almendarez
--- NOTE | 2018-07-08 18:35 | NUR ---
Problems reprioritized. Patient report given, questions answered & plan of care reviewed with PAVEL Phillip.
--- NOTE | 2018-07-08 18:52 | NUR ---
Patient in room [facility]. I have received report from Shital ZHAO and had the opportunity to ask questions and assume patient care. Pt sitting up in bed, resting comfortably with no signs of distress. Will continue to monitor.
[2018-07-08 20:00] VITALS: BP 172/83
[2018-07-08] MEDS: acetaminophen 325mg tablet PO PRN (21:38)
[2018-07-08 23:56] VITALS: BP 178/61
[2018-07-09] MEDS: normal saline 1000ml 1,000 ML IV SCH ×2 (01:24→17:14)
[2018-07-09] MEDS: diltiazem 30mg tablet PO SCH ×2 (01:27→19:43)
[2018-07-09 05:33] LABS: BASOPHILS % (AUTO) 0.5 % (0-1); EOSINOPHILS # (AUTO) 0.1 X10'3 (0-0.9); EOSINOPHILS % (AUTO) 2.4 % (0-6); HEMATOCRIT 35.6 % (35.0-45.0); LYMPHOCYTES # (AUTO) 0.9 X10'3 (1.1-4.8); MEAN CORPUSCULAR HGB CONC 33.6 % (33.0-36.5); MEAN CORPUSCULAR VOLUME 95.3 FL (78-98); MEAN PLATELET VOLUME 6.8 FL (7.4-10.4); MONOCYTES # (AUTO) 0.4 X10'3 (0-0.9); NEUTROPHILS # (AUTO) 2.8 X10'3 (1.8-7.7); NEUTROPHILS % (AUTO) 65.1 % (42-75); PLATELET COUNT 222 X10'3 (140-440); RED BLOOD COUNT 3.74 X10'6 (4.20-5.60); RED CELL DISTRIBUTION WIDTH 13.6 % (11.5-14.5); WHITE BLOOD COUNT 4.2 X10'3 (4.5-11.0)
[2018-07-09 05:41] LABS: ALANINE AMINOTRANSFERASE 28 U/L (12-78); ALBUMIN 2.3 G/DL (3.4-5.0); ALBUMIN/GLOBULIN RATIO 0.7 (1.1-1.5); ALKALINE PHOSPHATASE 82 IU/L (46-116); ANION GAP 9 (8-16); ASPARTATE AMINO TRANSFERASE 22 U/L (10-37); BILIRUBIN,TOTAL 0.3 MG/DL (0.1-1.0); BLOOD UREA NITROGEN 12 MG/DL (7-18); BUN/CREATININE RATIO 11.7 (6.6-38.0); CALCIUM 8.7 MG/DL (8.5-10.1); CHLORIDE 100 MMOL/L (99-107); CREATININE 1.03 MG/DL (0.40-0.90); GLUCOSE 99 MG/DL (70-104); MAGNESIUM 1.8 MG/DL (1.5-2.4); POTASSIUM 4.6 MMOL/L (3.5-5.1); SODIUM 130 MMOL/L (135-145); TOTAL CARBON DIOXIDE 20.9 MMOL/L (24-32); TOTAL PROTEIN 5.8 G/DL (6.4-8.2); eGFR 51 ML/MIN
--- NOTE | 2018-07-09 06:50 | NUR ---
Problems reprioritized. Patient report given, questions answered & plan of care reviewed with Jeanne ZHAO. Pt was sitting up in bed watching tv. No signs of distress at this time.
[2018-07-09] MEDS: K and/or MAG REPLACEMENT MC SCH (08:00)
[2018-07-09 08:34] VITALS: BP 169/56
[2018-07-09] MEDS: levoFLOXACIN 250mg tablet PO SCH (08:57)
[2018-07-09] MEDS: levoTHYROXINE 25mcg tablet PO SCH (08:57)
[2018-07-09] MEDS: amiodarone 200mg tablet PO SCH (08:58)
[2018-07-09] MEDS: lisinopril 20mg tablet PO SCH (08:58)
[2018-07-09] MEDS: polyethylene glycol 3350 17gm powd pack PO PRN (09:01)
[2018-07-09 11:00] VITALS: BP 149/65
[2018-07-09] MEDS ORDERED: diltiazem CD 180mg cap (once-daily) PO SCH (15:00)
[2018-07-09] MEDS: nystatin 15 GM powder TP SCH ×2 (15:40→21:00)
--- NOTE | 2018-07-09 18:37 | NUR ---
Patient in room [facility]. I have received report from Jeanne ZHAO and had the opportunity to ask questions and assume patient care.
--- NOTE | 2018-07-09 18:44 | NUR ---
Problems reprioritized. Patient report given, questions answered & plan of care reviewed with Marjan ZHAO
[2018-07-09] MEDS: bisacodyl 5mg tablet.DR PO PRN (19:43)
[2018-07-09 20:00] VITALS: BP 154/54
[2018-07-09] MEDS: tamsulosin 0.4mg capsule PO SCH (21:42)
[2018-07-09 23:52] VITALS: BP 158/67
--- NOTE | 2018-07-10 00:18 | NUR ---
Problems reprioritized. Patient report given, questions answered & plan of care reviewed with Yessi ZHAO .Pt jones emptied, belongings gathered. Will be transferring to room 4007.
--- NOTE | 2018-07-10 00:20 | NUR ---
Received report from Marjan ZHAO. Reviewed POC with opportunity to ask questions and have any concerns addressed. Room is ready for patient.
[2018-07-10 01:02] VITALS: BP 179/68
[2018-07-10 02:00] VITALS: BP 170/67
[2018-07-10] MEDS: diltiazem 30mg tablet PO SCH ×4 (02:22→20:21)
[2018-07-10 06:00] VITALS: BP 119/64
[2018-07-10 06:06] LABS: EOSINOPHILS # (AUTO) 0.1 X10'3 (0-0.9); EOSINOPHILS % (AUTO) 2.5 % (0-6); HEMATOCRIT 30.3 % (35.0-45.0); HEMOGLOBIN 10.6 g/dl (12.0-16.0); LYMPHOCYTES # (AUTO) 0.9 X10'3 (1.1-4.8); LYMPHOCYTES % (AUTO) 23.7 % (21-51); MEAN CORPUSCULAR HEMOGLOBIN 32.8 PG (27.0-31.0); MEAN CORPUSCULAR HGB CONC 34.9 % (33.0-36.5); MEAN CORPUSCULAR VOLUME 94.1 FL (78-98); MEAN PLATELET VOLUME 6.3 FL (7.4-10.4); MONOCYTES # (AUTO) 0.4 X10'3 (0-0.9); MONOCYTES % (AUTO) 10.2 % (2-12); NEUTROPHILS # (AUTO) 2.4 X10'3 (1.8-7.7); NEUTROPHILS % (AUTO) 62.6 % (42-75); PLATELET COUNT 201 X10'3 (140-440); RED BLOOD COUNT 3.22 X10'6 (4.20-5.60); RED CELL DISTRIBUTION WIDTH 14.6 % (11.5-14.5); WHITE BLOOD COUNT 3.9 X10'3 (4.5-11.0)
--- NOTE | 2018-07-10 06:20 | NUR ---
Patient in room [facility]. I have received report from MARSHA Carlton RN and had the opportunity to ask questions and assume patient care.
--- NOTE | 2018-07-10 06:28 | NUR ---
Report given to Jose ZHAO.
[2018-07-10 06:29] LABS: ALANINE AMINOTRANSFERASE 23 U/L (12-78); ALBUMIN 2.2 G/DL (3.4-5.0); ALBUMIN/GLOBULIN RATIO 0.7 (1.1-1.5); ALKALINE PHOSPHATASE 72 IU/L (46-116); ANION GAP 8 (8-16); ASPARTATE AMINO TRANSFERASE 18 U/L (10-37); BILIRUBIN,TOTAL 0.3 MG/DL (0.1-1.0); BLOOD UREA NITROGEN 11 MG/DL (7-18); BUN/CREATININE RATIO 10.8 (6.6-38.0); CALCIUM 8.2 MG/DL (8.5-10.1); CHLORIDE 100 MMOL/L (99-107); CREATININE 1.02 MG/DL (0.40-0.90); GLUCOSE 98 MG/DL (70-104); MAGNESIUM 1.6 MG/DL (1.5-2.4); POTASSIUM 4.3 MMOL/L (3.5-5.1); SODIUM 130 MMOL/L (135-145); TOTAL CARBON DIOXIDE 21.7 MMOL/L (24-32); TOTAL PROTEIN 5.4 G/DL (6.4-8.2); eGFR 51 ML/MIN
[2018-07-10] MEDS: K and/or MAG REPLACEMENT MC SCH (08:00)
[2018-07-10] MEDS: amiodarone 200mg tablet PO SCH (08:11)
[2018-07-10] MEDS: lisinopril 20mg tablet PO SCH (08:11)
[2018-07-10] MEDS: levoTHYROXINE 25mcg tablet PO SCH (08:12)
[2018-07-10] MEDS: nystatin 15 GM powder TP SCH ×3 (08:15→20:22)
[2018-07-10] MEDS: normal saline 1000ml 1,000 ML IV SCH ×2 (08:20→20:29)
[2018-07-10 10:00] VITALS: BP 130/54
[2018-07-10] MEDS: levoFLOXACIN 250mg tablet PO SCH (10:45)
[2018-07-10] MEDS: acetaminophen 325mg tablet PO PRN ×2 (10:45→20:16)
[2018-07-10] MEDS: polyethylene glycol 3350 17gm powd pack PO PRN (13:56)
[2018-07-10 18:00] VITALS: BP 148/50
--- NOTE | 2018-07-10 18:35 | NUR ---
Problems reprioritized. Patient report given, questions answered & plan of care reviewed with BUZZ ZHAO.
[2018-07-10] MEDS ORDERED: polyvinyl alcohol ophthalmic drops 15ml bottle EACHEYE PRN (18:45)
--- NOTE | 2018-07-10 19:06 | NUR ---
pt requested eye drops for dry eyes. order received for drops. eating dinner w/o distress
[2018-07-10] MEDS: docusate sod 100mg capsule PO SCH (20:20)
[2018-07-10] MEDS: tamsulosin 0.4mg capsule PO SCH (20:21)
[2018-07-10 22:12] VITALS: BP 140/49
[2018-07-11] VITALS (10 sets, daily range): BP systolic 53–159; BP diastolic 21–69
[2018-07-11] MEDS: diltiazem 30mg tablet PO SCH ×2 (02:00→08:34)
--- NOTE | 2018-07-11 06:03 | NUR ---
Patient in room [facility]. I have received report from BUZZ ZHAO and had the opportunity to ask questions and assume patient care.
[2018-07-11] MEDS: levoTHYROXINE 25mcg tablet PO SCH (07:00)
[2018-07-11] MEDS: K and/or MAG REPLACEMENT MC SCH (08:00)
[2018-07-11] MEDS: polyethylene glycol 3350 17gm powd pack PO PRN (08:34)
[2018-07-11] MEDS: docusate sod 100mg capsule PO SCH ×2 (08:34→20:05)
[2018-07-11] MEDS: amiodarone 200mg tablet PO SCH (08:34)
[2018-07-11 08:35] LABS: ALANINE AMINOTRANSFERASE 23 U/L (12-78); ALBUMIN 2.1 G/DL (3.4-5.0); ALBUMIN/GLOBULIN RATIO 0.7 (1.1-1.5); ALKALINE PHOSPHATASE 71 IU/L (46-116); ANION GAP 5 (8-16); ASPARTATE AMINO TRANSFERASE 20 U/L (10-37); BILIRUBIN,TOTAL 0.4 MG/DL (0.1-1.0); BLOOD UREA NITROGEN 12 MG/DL (7-18); BUN/CREATININE RATIO 11.3 (6.6-38.0); CALCIUM 8.1 MG/DL (8.5-10.1); CHLORIDE 99 MMOL/L (99-107); CREATININE 1.06 MG/DL (0.40-0.90); GLUCOSE 92 MG/DL (70-104); POTASSIUM 4.3 MMOL/L (3.5-5.1); SODIUM 128 MMOL/L (135-145); TOTAL CARBON DIOXIDE 23.7 MMOL/L (24-32); TOTAL PROTEIN 5.2 G/DL (6.4-8.2); eGFR 49 ML/MIN
[2018-07-11] MEDS: nystatin 15 GM powder TP SCH ×3 (08:37→20:05)
[2018-07-11 08:40] LABS: BASOPHILS % (AUTO) 0.7 % (0-1); EOSINOPHILS # (AUTO) 0.1 X10'3 (0-0.9); EOSINOPHILS % (AUTO) 1.8 % (0-6); HEMATOCRIT 30.7 % (35.0-45.0); HEMOGLOBIN 10.5 g/dl (12.0-16.0); LYMPHOCYTES # (AUTO) 0.9 X10'3 (1.1-4.8); LYMPHOCYTES % (AUTO) 24.9 % (21-51); MEAN CORPUSCULAR HEMOGLOBIN 32.5 PG (27.0-31.0); MEAN CORPUSCULAR HGB CONC 34.3 % (33.0-36.5); MEAN CORPUSCULAR VOLUME 94.5 FL (78-98); MEAN PLATELET VOLUME 6.7 FL (7.4-10.4); MONOCYTES # (AUTO) 0.3 X10'3 (0-0.9); MONOCYTES % (AUTO) 8.9 % (2-12); NEUTROPHILS # (AUTO) 2.2 X10'3 (1.8-7.7); NEUTROPHILS % (AUTO) 63.7 % (42-75); PLATELET COUNT 204 X10'3 (140-440); RED BLOOD COUNT 3.24 X10'6 (4.20-5.60); RED CELL DISTRIBUTION WIDTH 14.3 % (11.5-14.5); WHITE BLOOD COUNT 3.5 X10'3 (4.5-11.0)
[2018-07-11] MEDS: normal saline 1000ml 1,000 ML IV SCH (08:41)
[2018-07-11] MEDS ORDERED: normal saline 1000ml 1,000 ML IV ONE ×2 (11:05)
[2018-07-11] MEDS ORDERED: bisacodyl 10mg suppository rectal RC PRN (13:05)
[2018-07-11] MEDS: HYDROcodone/acetaminophen 5mg/325mg tablet PO PRN (16:41)
--- NOTE | 2018-07-11 18:00 | NUR ---
Problems reprioritized. Patient report given, questions answered & plan of care reviewed with KRUPA Green RN.
--- NOTE | 2018-07-11 18:10 | NUR ---
Patient in room [facility]. I have received report from PAVEL MARTIN and had the opportunity to ask questions and assume patient care.
[2018-07-11] MEDS ORDERED: hyDRALAzine 10mg tablet PO PRN (19:00)
[2018-07-11] MEDS: tamsulosin 0.4mg capsule PO SCH (20:05)
[2018-07-11] MEDS: bisacodyl 5mg tablet.DR PO PRN (20:05)
[2018-07-12] MEDS: HYDROcodone/acetaminophen 5mg/325mg tablet PO PRN (03:48)
[2018-07-12 06:00] VITALS: BP 153/59
--- NOTE | 2018-07-12 06:15 | NUR ---
Patient in room [facility]007. I have received report from KRUPA ZHAO and had the opportunity to ask questions and assume patient care.
--- NOTE | 2018-07-12 06:22 | NUR ---
Problems reprioritized. Patient report given, questions answered & plan of care reviewed with PAVEL Garcia.
[2018-07-12 07:49] LABS: BASOPHILS % (AUTO) 0.7 % (0-1); EOSINOPHILS # (AUTO) 0.1 X10'3 (0-0.9); EOSINOPHILS % (AUTO) 2.1 % (0-6); HEMATOCRIT 29.4 % (35.0-45.0); LYMPHOCYTES # (AUTO) 0.9 X10'3 (1.1-4.8); LYMPHOCYTES % (AUTO) 18.8 % (21-51); MEAN CORPUSCULAR HEMOGLOBIN 32.3 PG (27.0-31.0); MEAN CORPUSCULAR HGB CONC 34.1 % (33.0-36.5); MEAN CORPUSCULAR VOLUME 94.7 FL (78-98); MEAN PLATELET VOLUME 6.6 FL (7.4-10.4); MONOCYTES # (AUTO) 0.4 X10'3 (0-0.9); MONOCYTES % (AUTO) 7.7 % (2-12); NEUTROPHILS # (AUTO) 3.2 X10'3 (1.8-7.7); NEUTROPHILS % (AUTO) 70.7 % (42-75); PLATELET COUNT 194 X10'3 (140-440); RED CELL DISTRIBUTION WIDTH 14.8 % (11.5-14.5); WHITE BLOOD COUNT 4.6 X10'3 (4.5-11.0)
[2018-07-12 07:59] LABS: ANION GAP 7 (8-16); BLOOD UREA NITROGEN 13 MG/DL (7-18); BUN/CREATININE RATIO 10.7 (6.6-38.0); CALCIUM 8.1 MG/DL (8.5-10.1); CHLORIDE 100 MMOL/L (99-107); CREATININE 1.22 MG/DL (0.40-0.90); GLUCOSE 99 MG/DL (70-104); MAGNESIUM 1.7 MG/DL (1.5-2.4); POTASSIUM 4.4 MMOL/L (3.5-5.1); SODIUM 130 MMOL/L (135-145); TOTAL CARBON DIOXIDE 23.3 MMOL/L (24-32); eGFR 42 ML/MIN
[2018-07-12] MEDS: K and/or MAG REPLACEMENT MC SCH (08:00)
[2018-07-12 08:08] LABS: PARTIAL THROMBOPLASTIN TIME 29 SECONDS (22-32); PROTHROMBIN TIME 10.6 SECONDS (9.0-12.0)
[2018-07-12] MEDS: docusate sod 100mg capsule PO SCH ×2 (08:15→20:06)
[2018-07-12] MEDS: bisacodyl 5mg tablet.DR PO PRN (08:15)
[2018-07-12] MEDS: levoTHYROXINE 25mcg tablet PO SCH (08:15)
[2018-07-12] MEDS: nystatin 15 GM powder TP SCH ×3 (08:15→20:09)
[2018-07-12] MEDS: enoxaparin 40mg/0.4ml syringe SQ SCH (08:16)
[2018-07-12 10:00] VITALS: BP_SYST 106; BP_SYST 119; BP_SYST 89; BP_DIAS 44; BP_DIAS 46; BP_DIAS 57
--- NOTE | 2018-07-12 10:16 | NUR ---
Reassessment: Pt had an episode of hypotension, s/p rapid response team, BP meds now on hold per MD progress notes. Pt on mech soft diet with fluctuating PO intake with average 75% likely meeting nutrient needs. [facility] 07/11. Will continue to follow. Rec: 1. Continue mech soft diet 2. Monitor for further bowel care 3. Monitor for ONS 4. Wt per rx Addendum: 07/12/18 at [address] Amended: Links added.
[2018-07-12 18:00] VITALS: BP 163/58
--- NOTE | 2018-07-12 18:00 | NUR ---
Patient in room [facility]007. I have received report from Jose and had the opportunity to ask questions and assume patient care.
--- NOTE | 2018-07-12 18:00 | NUR ---
Problems reprioritized. Patient report given, questions answered & plan of care reviewed with GIUSEPPE ZHAO.
--- NOTE | 2018-07-12 19:20 | NUR ---
Cap refill 3 seconds to feet bilaterally Addendum: 07/12/18 at 2257 by Mel Braga RN Amended: Links added.
[2018-07-12 20:00] VITALS: BP 149/46
[2018-07-12] MEDS: tamsulosin 0.4mg capsule PO SCH (20:06)
[2018-07-12 22:00] VITALS: BP 126/69
[2018-07-13] MEDS: HYDROcodone/acetaminophen 5mg/325mg tablet PO PRN (01:39)
[2018-07-13 06:00] VITALS: BP 150/55
--- NOTE | 2018-07-13 06:26 | NUR ---
Problems reprioritized. Patient report given, questions answered & plan of care reviewed with Mohan ZHAO.
--- NOTE | 2018-07-13 07:03 | NUR ---
Patient in room [facility] 4007. I have received report from Mel ZHAO and had the opportunity to ask questions and assume patient care.
[2018-07-13] MEDS: K and/or MAG REPLACEMENT MC SCH (07:04)
[2018-07-13 07:45] LABS: BASOPHILS % (AUTO) 0.8 % (0-1); EOSINOPHILS % (AUTO) 0.8 % (0-6); HEMATOCRIT 31.8 % (35.0-45.0); LYMPHOCYTES # (AUTO) 1.1 X10'3 (1.1-4.8); LYMPHOCYTES % (AUTO) 26.2 % (21-51); MEAN CORPUSCULAR HEMOGLOBIN 32.7 PG (27.0-31.0); MEAN CORPUSCULAR HGB CONC 34.6 % (33.0-36.5); MEAN CORPUSCULAR VOLUME 94.4 FL (78-98); MEAN PLATELET VOLUME 6.6 FL (7.4-10.4); MONOCYTES # (AUTO) 0.3 X10'3 (0-0.9); MONOCYTES % (AUTO) 8.4 % (2-12); NEUTROPHILS # (AUTO) 2.6 X10'3 (1.8-7.7); NEUTROPHILS % (AUTO) 63.8 % (42-75); PLATELET COUNT 246 X10'3 (140-440); RED BLOOD COUNT 3.37 X10'6 (4.20-5.60); RED CELL DISTRIBUTION WIDTH 14.8 % (11.5-14.5); WHITE BLOOD COUNT 4.1 X10'3 (4.5-11.0)
[2018-07-13] MEDS: docusate sod 100mg capsule PO SCH ×2 (08:20→20:06)
[2018-07-13] MEDS: levoTHYROXINE 25mcg tablet PO SCH (08:20)
[2018-07-13 08:21] LABS: ALBUMIN 2.3 G/DL (3.4-5.0); ANION GAP 8 (8-16); BLOOD UREA NITROGEN 13 MG/DL (7-18); BUN/CREATININE RATIO 10.7 (6.6-38.0); CALCIUM 8.4 MG/DL (8.5-10.1); CHLORIDE 98 MMOL/L (99-107); CREATININE 1.22 MG/DL (0.40-0.90); GLUCOSE 87 MG/DL (70-104); MAGNESIUM 1.8 MG/DL (1.5-2.4); POTASSIUM 4.3 MMOL/L (3.5-5.1); SODIUM 129 MMOL/L (135-145); TOTAL CARBON DIOXIDE 23.2 MMOL/L (24-32); eGFR 42 ML/MIN
[2018-07-13] MEDS: enoxaparin 40mg/0.4ml syringe SQ SCH (08:21)
[2018-07-13] MEDS: nystatin 15 GM powder TP SCH ×3 (08:21→20:06)
[2018-07-13 10:00] VITALS: BP 151/51
[2018-07-13] MEDS: lactulose 20gm/30ml cup PO SCH ×2 (13:41→20:06)
[2018-07-13 17:10] VITALS: BP 174/67
[2018-07-13 18:00] VITALS: BP 174/67
--- NOTE | 2018-07-13 18:29 | NUR ---
Problems reprioritized. Patient report given, questions answered & plan of care reviewed with Cinthya ZHAO.
--- NOTE | 2018-07-13 18:31 | NUR ---
Patient in room [facility] 4007. I have received report from Mohan ZHAO and had the opportunity to ask questions and assume patient care.
[2018-07-13] MEDS: tamsulosin 0.4mg capsule PO SCH (20:06)
[2018-07-13 22:00] VITALS: BP_SYST 127; BP_SYST 141; BP_DIAS 67; BP_DIAS 69
[2018-07-14] MEDS: lactulose 20gm/30ml cup PO SCH ×2 (01:57→08:15)
--- NOTE | 2018-07-14 06:25 | NUR ---
Patient in room [facility] 4007. I have received report from Cinthya ZHAO and had the opportunity to ask questions and assume patient care.
--- NOTE | 2018-07-14 06:31 | NUR ---
Problems reprioritized. Patient report given, questions answered & plan of care reviewed with Mohan ZHAO.
[2018-07-14 06:45] VITALS: BP 152/60
[2018-07-14] MEDS: K and/or MAG REPLACEMENT MC SCH (07:08)
[2018-07-14] MEDS: levoTHYROXINE 25mcg tablet PO SCH (07:22)
[2018-07-14] MEDS: docusate sod 100mg capsule PO SCH (07:22)
[2018-07-14] MEDS: enoxaparin 40mg/0.4ml syringe SQ SCH (07:23)
[2018-07-14] MEDS: nystatin 15 GM powder TP SCH ×2 (07:25→13:00)
[2018-07-14 10:00] VITALS: BP 141/56
[2018-07-14] MEDS ORDERED: CARSR60C PO (10:59)
--- NOTE | 2018-07-14 14:30 | NUR ---
Patient discharge to home with all belongings, transported via [employer], new rx called into preferred pharmacy,IV taken out, discharge instructions went over with patient
== END 2018-07-14 14:00 | disposition home health service (06) | DRG 683 ==
LOC: ER 06:52 → ED HOLD 15:49 → SUR 3N 07-04 14:10 → ORTHO 4S 07-10 00:50
PROVIDERS: ADMIT Internal Medicine; ATTEND Hospitalist
DX: N17.9 Acute kidney failure, unspecified (principal); N39.0 Urinary tract infection, site not specified; E87.1 Hypo-osmolality and hyponatremia; I48.2 Chronic atrial fibrillation; M54.9 Dorsalgia, unspecified; E03.9 Hypothyroidism, unspecified; E86.0 Dehydration; I10 Essential (primary) hypertension; I95.1 Orthostatic hypotension; K59.00 Constipation, unspecified; S82.66XA Nondisplaced fracture of lateral malleolus of unspecified fibula, initial encounter for closed fracture; R62.7 Adult failure to thrive; I08.1 Rheumatic disorders of both mitral and tricuspid valves; T50.905A Adverse effect of unspecified drugs, medicaments and biological substances, initial encounter; S39.012A Strain of muscle, fascia and tendon of lower back, initial encounter; Z66 Do not resuscitate; X58.XXXA Exposure to other specified factors, initial encounter; M19.90 Unspecified osteoarthritis, unspecified site; R00.1 Bradycardia, unspecified; S82.891A Other fracture of right lower leg, initial encounter for closed fracture; Z88.0 Allergy status to penicillin; Z88.1 Allergy status to other antibiotic agents; Z91.048 Other nonmedicinal substance allergy status; Z79.899 Other long term (current) drug therapy; Z79.890 Hormone replacement therapy; Z87.440 Personal history of urinary (tract) infections; Z90.710 Acquired absence of both cervix and uterus; Y92.89 Other specified places as the place of occurrence of the external cause; Y93.89 Activity, other specified; Y99.8 Other external cause status
CPT/HCPCS: 36415; 71045; 72100; 73610; 74018; 80048; 80053; 80076; 81001; 83605; 83735; 84439; 84443; 85025; 85610; 85730; 87040; 87070; 87077; 87088; 93005; 96365; 96375; 96376; 97110; 97162; 97530; 99285; G0378; J1650; J1956; J2270; J2405; J2765; J7030